=== PATIENT | male | born 1985 | race Caucasian/White ===

== ENCOUNTER 2017-10-10 18:40 | Emergency (ER) | payer OTHER ==
--- NOTE | 2017-10-10 19:45 | ED ---
Overdose HPI - General Chief Complaint: Overdose Stated Complaint: overdose Time Seen by Provider: 10/10/17 18:48 Source: EMS Mode of arrival: EMS Limitations: no limitations - History of Present Illness Initial Comments: 32-year-old male with past medical history of IV heroin abuse presented for evaluation of accidental IV heroin overdose. He states that he hasn't used for the last 8 months and isn't sure why he used today. He denies any suicidal or homicidal ideations. He states that he uses same amount that he used to use but believes that that may been too much for him at this time. EMS arrived and states that the patient was blue given 2 mg intranasal Narcan. This did not resolve his symptoms and he was given 2 mg IV with her return to his baseline. Patient states he was sitting on the toilet when he injected however EMS found him on the floor of the bathroom. He denies any pain or other injuries at this time. - Related Data Home Medications Medication Instructions Recorded Confirmed No Known Home Medications [No 10/10/17 10/10/17 Known Home Medications] Allergies Allergy/AdvReac Type Severity Reaction Status Date / Time No Known Allergies Allergy Unverified 10/10/17 18:51 Review of Systems ROS Statement: Those systems with pertinent positive or pertinent negative responses have been documented in the HPI. ROS Other: All systems not noted in ROS Statement are negative. Constitutional: Denies: fever, chills Eyes: Denies: eye pain, eye discharge ENT: Denies: ear pain, throat pain Respiratory: Denies: cough, dyspnea Cardiovascular: Denies: chest pain, palpitations, dyspnea on exertion Endocrine: Denies: fatigue, polydipsia Gastrointestinal: Denies: abdominal pain, nausea, vomiting Genitourinary: Denies: urgency, dysuria Musculoskeletal: Denies: back pain, arthralgia, myalgia Skin: Denies: rash, lesions Neurological: Denies: headache, weakness Psychiatric: Denies: anxiety, depression, homicidal thoughts, suicidal thoughts Hematological/Lymphatic: Denies: easy bleeding, easy bruising Past Medical History Past Medical History: No Reported History History of Any Multi-Drug Resistant Organisms: None Reported Past Surgical History: Hernia Repair Past Psychological History: No Psychological Hx Reported Smoking Status: Current every day smoker Past Alcohol Use History: Occasional Past Drug Use History: Heroin General Exam Limitations: no limitations General appearance: alert, in no apparent distress Head exam: Present: atraumatic, normocephalic, normal inspection Eye exam: Present: normal appearance, PERRL, EOMI. Absent: scleral icterus, conjunctival injection, periorbital swelling ENT exam: Present: normal exam, mucous membranes moist Neck exam: Present: normal inspection. Absent: tenderness, meningismus, lymphadenopathy Respiratory exam: Present: normal lung sounds bilaterally. Absent: respiratory distress, wheezes, rales, rhonchi, stridor Cardiovascular Exam: Present: regular rate, normal rhythm, normal heart sounds. Absent: systolic murmur, diastolic murmur, rubs, gallop, clicks GI/Abdominal exam: Present: soft, normal bowel sounds. Absent: distended, tenderness, guarding, rebound, rigid Rectal exam: Present: deferred Extremities exam: Present: normal inspection, full ROM, normal capillary refill. Absent: tenderness, pedal edema, joint swelling, calf tenderness Back exam: Present: normal inspection Neurological exam: Present: alert, oriented X3, CN II-XII intact Psychiatric exam: Present: normal affect, normal mood Skin exam: Present: warm, dry, intact, normal color. Absent: rash Course Vital Signs 10/10/17 10/10/17 18:41 19:51 Temperature 97.1 F L 96.9 F L Pulse Rate 93 87 Respiratory 16 17 Rate Blood Pressure 135/77 139/69 O2 Sat by Pulse 100 97 Oximetry Medical Decision Making - Medical Decision Making 32-year-old male with past medical history of heroin abuse presented for evaluation of IV heroine overdose. Overdose was accidental and the patient states he hasn't used for a month's which resulted in his unintentional OD. On physical examination he is at his baseline, in no apparent distress, resting comfortably in the bed. There are no injuries noted. Patient was observed in the ED for about an hour and a half which point the patient stated that he would like to be discharged. He called friend who came to pick him up and his friend for him that he would be watching her for the next couple hours. The patient was given instructions on rebound overdose and he acknowledged with teachback. Advised to follow-up with his primary care physician.given return instructions. The patient acknowledged an understanding of all phonation provided and agreed with this plan of care. Disposition Clinical Impression: Accidental heroin overdose Disposition: HOME SELF-CARE Condition: Stable Instructions: Narcotic Abuse (ED) Additional Instructions: at this time he is stable for discharge however there is concern for rebound overdose following Narcan administration. You are advised to have someone with 2 over the next 4-6 hours and should immediately to return to the ED if your symptoms should return or worsen. These instructions were given to at the bedside as well and verbal teachback was provided. Referrals: Shree Jones MD [Primary Care Provider] - 1-2 days Time of Disposition: 19:45
[2017-10-10 19:52] VITALS: BP 139/69; PULSE 87; RESP 17; TEMP 96.9
== END 2017-10-10 19:58 | disposition home or self-care (01) ==
LOC: EC 18:40
DX: T40.1X1A Poisoning by heroin, accidental (unintentional), initial encounter (principal); F17.200 Nicotine dependence, unspecified, uncomplicated
CPT/HCPCS: 99284

== ENCOUNTER 2017-12-11 04:28 | Observation (INO) | payer OTHER ==
[2017-12-11] MEDS ORDERED: diphenhydrAMINE 50 MG/ML 1 ML VIAL IVP STA (04:59)
[2017-12-11] MEDS ORDERED: SODIUM CHLORIDE 0.9% 1,000 ML IV STA ×2 (04:59→10:36)
[2017-12-11] MEDS ORDERED: LORazepam 2 MG/ML INJ IV STA (04:59)
--- NOTE | 2017-12-11 05:04 | ED ---
Overdose HPI - General Source: patient Limitations: no limitations - History of Present Illness Complaint: accidental overdose -: hour(s) Context: Accidental Overdose: wanted to get high <Juan Barragan - Last Filed: 12/11/17 05:43> <Blas Marinelli - Last Filed: 12/11/17 10:17> - General Stated Complaint: Overdose Time Seen by Provider: 12/11/17 04:38 - History of Present Illness Initial Comments: This patient is a 32-year-old man who presents to be evaluated for a reaction to taking meth. The patient states that he has been using both crack and meth for going on 3 days. He states that he has not slept all. He states that over the past few hours he has started developing involuntary movements and he is also having some hallucinations. The patient denies other coingestants. He states that he is now starting to have some aches related to the constant movements. (Juan Barragan) - Related Data Home Medications Medication Instructions Recorded Confirmed ALPRAZolam [Xanax] 0.5 mg PO BID PRN 12/11/17 12/11/17 Allergies Allergy/AdvReac Type Severity Reaction Status Date / Time No Known Allergies Allergy Verified 12/11/17 07:31 Review of Systems ROS Other: All systems not noted in ROS Statement are negative. Constitutional: Denies: fever, chills, weakness Eyes: Denies: vision change Respiratory: Denies: cough, dyspnea Cardiovascular: Denies: chest pain, palpitations, edema, syncope Gastrointestinal: Denies: abdominal pain, vomiting, diarrhea Genitourinary: Denies: hematuria Musculoskeletal: Reports: myalgia. Denies: back pain Skin: Denies: rash Neurological: Denies: headache, weakness, numbness <Juan Barragan - Last Filed: 12/11/17 05:43> ROS Other: All systems not noted in ROS Statement are negative. <Blas Marinelli - Last Filed: 12/11/17 10:17> ROS Statement: Those systems with pertinent positive or pertinent negative responses have been documented in the HPI. Past Medical History Past Medical History: No Reported History History of Any Multi-Drug Resistant Organisms: None Reported Past Surgical History: Hernia Repair Past Psychological History: No Psychological Hx Reported Smoking Status: Current every day smoker Past Alcohol Use History: Occasional Past Drug Use History: Heroin <Juan Barragan - Last Filed: 12/11/17 05:43> General Exam General appearance: alert, anxious Head exam: Present: atraumatic, normocephalic Eye exam: Present: normal appearance. Absent: scleral icterus, conjunctival injection ENT exam: Present: mucous membranes dry Neck exam: Present: normal inspection, full ROM Respiratory exam: Present: normal lung sounds bilaterally. Absent: respiratory distress, wheezes, rales, rhonchi, stridor Cardiovascular Exam: Present: normal rhythm, tachycardia, normal heart sounds. Absent: systolic murmur, diastolic murmur, rubs, gallop GI/Abdominal exam: Present: soft. Absent: distended, tenderness, guarding, rebound Extremities exam: Present: normal inspection, normal capillary refill. Absent: pedal edema, calf tenderness Back exam: Present: normal inspection. Absent: CVA tenderness (R), CVA tenderness (L) Neurological exam: Present: alert Skin exam: Present: warm, dry, intact, other (He does have a few excoriations the skin, 2 of which appear to have secondary infection) <KendelleliasJuan - Last Filed: 12/11/17 05:43> Course <YungJuan - Last Filed: 12/11/17 05:43> <Blas Marinelli - Last Filed: 12/11/17 10:17> Vital Signs 12/11/17 12/11/17 12/11/17 04:30 06:18 07:03 Temperature 97.0 F L Pulse Rate 140 H 106 H 97 Respiratory 18 16 18 Rate Blood Pressure 147/60 125/58 118/59 O2 Sat by Pulse 96 98 98 Oximetry 12/11/17 08:19 Temperature Pulse Rate 88 Respiratory 18 Rate Blood Pressure 117/57 O2 Sat by Pulse 99 Oximetry - Reevaluation(s) Reevaluation #1: 12/11/17 10:16 patient reevaluated by myself, Dr. Marinelli. Patient resting comfortably in bed. Patient is easily arousable and oriented. Patient advised to discontinue drug use. (Blas Marinelli) Medical Decision Making - EKG Data -: EKG Interpreted by Nm EKG shows normal: sinus rhythm, axis (Normal), intervals (Normal), QRS complexes (Normal), ST-T waves (Normal) Rate: tachycardia (Rate proximally 109 bpm) <Juan Barragan - Last Filed: 12/11/17 05:43> - Lab Data Result diagrams: 12/11/17 05:26 12/11/17 05:26 <Blas Marinelli - Last Filed: 12/11/17 10:17> - Lab Data Lab Results 12/11/17 12/11/17 12/11/17 Range/Units 05:26 05:26 05:26 WBC 18.0 H (3.8-10.6) k/uL RBC 4.27 L (4.30-5.90) m/uL Hgb 13.9 (13.0-17.5) gm/dL Hct 39.8 (39.0-53.0) % MCV 93.1 (80.0-100.0) fL MCH 32.4 (25.0-35.0) pg MCHC 34.8 (31.0-37.0) g/dL RDW 12.2 (11.5-15.5) % Plt Count 292 (150-450) k/uL Neutrophils % 82 % Lymphocytes % 9 % Monocytes % 6 % Eosinophils % 1 % Basophils % 0 % Neutrophils # 14.7 H (1.3-7.7) k/uL Lymphocytes # 1.6 (1.0-4.8) k/uL Monocytes # 1.2 H (0-1.0) k/uL Eosinophils # 0.1 (0-0.7) k/uL Basophils # 0.1 (0-0.2) k/uL Sodium 136 L (137-145) mmol/L Potassium 5.0 (3.5-5.1) mmol/L Chloride 100 (98-107) mmol/L Carbon Dioxide 25 (22-30) mmol/L Anion Gap 11 mmol/L BUN 30 H (9-20) mg/dL Creatinine 1.40 H (0.66-1.25) mg/dL Est GFR (MDRD) Af Amer >60 (>60 ml/min/1.73 sqM) Est GFR (MDRD) Non-Af 59 (>60 ml/min/1.73 sqM) Glucose 82 (74-99) mg/dL Plasma Lactic Acid Ki 0.9 (0.7-2.0) mmol/L Calcium 9.9 (8.4-10.2) mg/dL Magnesium 1.7 (1.6-2.3) mg/dL Total Bilirubin 0.5 (0.2-1.3) mg/dL AST 113 H (17-59) U/L ALT 77 H (21-72) U/L Alkaline Phosphatase 83 (38-126) U/L Total Protein 7.4 (6.3-8.2) g/dL Albumin 4.4 (3.5-5.0) g/dL Salicylates <1.0 mg/dL Acetaminophen <10.0 ug/mL Serum Alcohol <10 mg/dL Disposition <Juan Barragan - Last Filed: 12/11/17 05:43> Time of Disposition: 10:17 <Blas Marinelli - Last Filed: 12/11/17 10:17> Clinical Impression: Adverse drug reaction Disposition: HOME SELF-CARE Condition: Stable Instructions: Polysubstance Abuse (ED) Additional Instructions: discontinue drug use. Return for worsening symptoms or other concerns. Referrals: Shree Jones MD [Primary Care Provider] - 1-2 days
[2017-12-11 05:52] LABS: ALT 77 U/L (21-72); AST 113 U/L (17-59); Acetaminophen <10.0 ug/mL; Albumin 4.4 g/dL (3.5-5.0); Alcohol <10 mg/dL; Alkaline Phosphatase 83 U/L (38-126); Anion Gap 11 mmol/L; Basophils # (A) 0.1 k/uL (0-0.2); Basophils % (A) 0 %; Blood Urea Nitrogen 30 mg/dL (9-20); Calcium 9.9 mg/dL (8.4-10.2); Carbon Dioxide 25 mmol/L (22-30); Chloride 100 mmol/L (98-107); Eosinophils # (A) 0.1 k/uL (0-0.7); Eosinophils % (A) 1 %; Glucose 82 mg/dL (74-99); HCT 39.8 % (39.0-53.0); HGB 13.9 gm/dL (13.0-17.5); Lymphocytes # (A) 1.6 k/uL (1.0-4.8); Lymphocytes % (A) 9 %; MCH 32.4 pg (25.0-35.0); MCHC 34.8 g/dL (31.0-37.0); MCV 93.1 fL (80.0-100.0); Magnesium 1.7 mg/dL (1.6-2.3); Mean Platelet Volume 6.9; Monocytes # (A) 1.2 k/uL (0-1.0); Monocytes % (A) 6 %; Neutrophils # (A) 14.7 k/uL (1.3-7.7); Neutrophils % (A) 82 %; Platelet Count 292 k/uL (150-450); RBC 4.27 m/uL (4.30-5.90); RDW 12.2 % (11.5-15.5); Salicylate <1.0 mg/dL; Sodium 136 mmol/L (137-145); Total Bilirubin 0.5 mg/dL (0.2-1.3); Total Protein 7.4 g/dL (6.3-8.2)
--- NOTE | 2017-12-11 12:29 | ED ---
Medical Decision Making - Medical Decision Making patient is unable to demonstrate a steady gait. Nursing reports patient has made some the logical statements. Case was discussed with practitioner Aquiles, who will admit for Dr. Wang, covering for Dr. aly, who admits for Dr. Orozco. - Lab Data Result diagrams: 12/11/17 05:26 12/11/17 05:26 Lab Results 12/11/17 12/11/17 12/11/17 Range/Units 05:26 05:26 05:26 WBC 18.0 H (3.8-10.6) k/uL RBC 4.27 L (4.30-5.90) m/uL Hgb 13.9 (13.0-17.5) gm/dL Hct 39.8 (39.0-53.0) % MCV 93.1 (80.0-100.0) fL MCH 32.4 (25.0-35.0) pg MCHC 34.8 (31.0-37.0) g/dL RDW 12.2 (11.5-15.5) % Plt Count 292 (150-450) k/uL Neutrophils % 82 % Lymphocytes % 9 % Monocytes % 6 % Eosinophils % 1 % Basophils % 0 % Neutrophils # 14.7 H (1.3-7.7) k/uL Lymphocytes # 1.6 (1.0-4.8) k/uL Monocytes # 1.2 H (0-1.0) k/uL Eosinophils # 0.1 (0-0.7) k/uL Basophils # 0.1 (0-0.2) k/uL Sodium 136 L (137-145) mmol/L Potassium 5.0 (3.5-5.1) mmol/L Chloride 100 (98-107) mmol/L Carbon Dioxide 25 (22-30) mmol/L Anion Gap 11 mmol/L BUN 30 H (9-20) mg/dL Creatinine 1.40 H (0.66-1.25) mg/dL Est GFR (MDRD) Af Amer >60 (>60 ml/min/1.73 sqM) Est GFR (MDRD) Non-Af 59 (>60 ml/min/1.73 sqM) Glucose 82 (74-99) mg/dL Plasma Lactic Acid Ki 0.9 (0.7-2.0) mmol/L Calcium 9.9 (8.4-10.2) mg/dL Magnesium 1.7 (1.6-2.3) mg/dL Total Bilirubin 0.5 (0.2-1.3) mg/dL AST 113 H (17-59) U/L ALT 77 H (21-72) U/L Alkaline Phosphatase 83 (38-126) U/L Total Protein 7.4 (6.3-8.2) g/dL Albumin 4.4 (3.5-5.0) g/dL Salicylates <1.0 mg/dL Acetaminophen <10.0 ug/mL Serum Alcohol <10 mg/dL Disposition Clinical Impression: Adverse drug reaction, Altered mental status Disposition: ADMITTED IP TO THIS HOSP Condition: Stable Instructions: Polysubstance Abuse (ED) Additional Instructions: discontinue drug use. Return for worsening symptoms or other concerns. Referrals: Shree Jones MD [Primary Care Provider] - 1-2 days
[2017-12-11] MEDS ORDERED: NALOXONE 0.4 MG/ML 1 ML VIAL IV PRN (12:30)
[2017-12-11] MEDS ORDERED: SODIUM CHLORIDE 0.9% 1,000 ML IV SCH (12:30)
--- NOTE | 2017-12-11 13:30 | CT ---
EXAMINATION TYPE: CT brain wo con DATE OF EXAM: 12/11/2017 COMPARISON: NONE INDICATION: overdose, altered mental status DLP: 1121 mGycm, Automated exposure control for dose reduction was used. CONTRAST: None CT of the brain is performed utilizing 3 mm thick sections through the posterior fossa and 3 mm thick sections through the remaining calvarium. Study is performed within 24 hours of arrival to the hosp ital. Motion artifact limits the examination. No abnormal hyperdensity is present to suggest an acute intracranial hemorrhage. No mass lesion is evident. No acute infarcts are evident. Ventricles and sulci are appropriate for the patient age. Paranasal sinuses and mastoid air cells within the [id number] are clear. IMPRESSIONS: 1. No obvious acute intracranial abnormality. 2. Exam is limited due to motion artifact especially noted at the edges of the calvarium.
[2017-12-11 15:46] LABS: Appearance,Urine Clear (Clear); Bilirubin,Urine Negative (Negative); Blood,Urine Negative (Negative); Color,Urine Yellow; Glucose,Urine (UA) Negative (Negative); Ketones,Urine 2+ (Negative); Leukocyte Esterase,Urine Negative (Negative); Nitrite,Urine Negative (Negative); PH, Urine 5.5 (5.0-8.0); Protein,Urine Trace (Negative); Specific Gravity,Urine 1.015 (1.001-1.035); Urobilinogen,Urine <2.0 mg/dL (<2.0)
[2017-12-11 15:54] LABS: Amphetamine Screen,Urine Detected (NotDetected); Barbiturate Screen,Urine Not Detected (NotDetected); Benzodiazepines Screen,Urine Detected (NotDetected); Cocaine Screen,Urine Not Detected (NotDetected); Methadone Screen, Urine Not Detected (NotDetected); Opiate Screen,Urine Detected (NotDetected); Oxycodone Screen, Urine Not Detected (NotDetected); Phencyclidine Screen,Urine Not Detected (NotDetected); Tricyclic Antidepressant,Urine Not Detected (NotDetected); Urn Cannabinoid Scrn Not Detected (NotDetected)
[2017-12-11] MEDS ORDERED: ONDANSETRON 4 MG/2 ML VIAL IVP PRN (17:40)
[2017-12-11] MEDS ORDERED: PANTOPRAZOLE 40 MG/10 ML VIAL IVP SCH (17:45)
[2017-12-11 19:35] VITALS: BP 120/58; PULSE 90; RESP 18; TEMP 97
[2017-12-11] MEDS ORDERED: LORazepam 1 MG TAB PO PRN (20:41)
[2017-12-11] MEDS ORDERED: TEMAZEPAM 15 MG CAP PO PRN (20:41)
[2017-12-11] MEDS ORDERED: HEPARIN SODIUM,PORCINE 5,000 UNIT/ML 1 ML VIAL SQ SCH (21:00)
[2017-12-11] MEDS ORDERED: cloNIDine HCL 0.1 MG TAB PO SCH (22:00)
--- NOTE | 2017-12-11 23:32 | HP ---
HISTORY AND PHYSICAL DATE OF SERVICE: 12/11/2017 CHIEF COMPLAINTS: Overdose and change in mental status. HISTORY OF PRESENT ILLNESS: This 32-year-old gentleman has a past medical history of multiple medical problems, including hernia repair, history of nicotine dependence, extensive history of substance abuse. Patient has a history of IV heroin abuse and methamphetamine abuse. Patient apparently went on a 3-day binge of methamphetamine and heroin abuse, according to the history. The patient was taken to [facility] by his girlfriend. The patient was using crack and methamphetamine for 3 days and patient had not slept well and the patient was having involuntary movements, hallucinations, confusion. The patient was taken to [facility] and admitted for evaluation and treatment. A sitter is being provided at this time. The patient is confused and unable to give a coherent history. Most of the history is taken from my discussion with staff and review of the chart. The patient also has multiple skin wounds, possibly from the drug abuse. The most predominant is in the left inguinal area. PAST MEDICAL HISTORY: 1. Hernia repair. 2. Substance abuse history. MEDICATIONS: Xanax 0.5 b.i.d. p.r.n. ALLERGIES: NONE. FAMILY HISTORY: No history of heart disease or strokes in the family. SOCIAL HISTORY: History of heroin and substance abuse, smoking. REVIEW OF SYSTEMS: Could not be taken; the patient is confused. PHYSICAL EXAMINATION: Patient is alert oriented x1. Pulse 83, blood pressure 128/66, respiration 16, temperature 98 degrees, pulse ox 98% on room air. HEENT: Conjunctivae normal. Oral mucosa moist. NECK: No jugular venous distention. No carotid bruit. No lymph node enlargement. CARDIOVASCULAR SYSTEM: S1, S2 muffled. No S3. No S4. RESPIRATORY SYSTEM: Breath sounds diminished at the bases. A few rhonchi. No crackles. ABDOMEN: Soft, nontender. No mass palpable. LEGS: No edema. No swelling. NERVOUS SYSTEM: Higher functions as mentioned earlier. Moves all 4 limbs. Mild diffuse weakness. LYMPHATICS: No lymph node palpable in neck, axillae or groin. SKIN: The patient has multiple needle track infections as well as significant rash in the left groin area also present. JOINTS: No active deforming arthropathy. LABS: WBC 18, hemoglobin 13.9, sodium 136, creatinine 1.4. AST ALT elevated. Drug screen is positive for amphetamines, methamphetamines, benzodiazepines and opiates. Alcohol less than 10. ASSESSMENT: 1. Status post overdosage with multiple substances, including methamphetamines and heroin. 2. Change in mental status, acute metabolic encephalopathy secondary to drug overdosage. 3. Increased white count, possibly secondary to cellulitis. 4. Multiple cellulitis needle tract infections. 5. Hyponatremia. 6. Increased creatinine with chronic kidney disease, stage III possibly. 7. Increased AST, ALT, possibly hepatitis, possibly secondary to drug usage or hepatitis. 8. History of hernia repair. 9. History of nicotine dependence. 10.FULL CODE. RECOMMENDATIONS AND DISCUSSION: In this 32-year-old gentleman who presented with multiple complex medical issues, we will monitor the patient closely, continue the current medications, continue symptomatic treatment. Otherwise at this time I recommend clonidine, watch for withdrawals and monitor closely. Psychiatric consultation. Infectious disease evaluation. Broad-spectrum IV antibiotics. Cultures. Guarded prognosis because of multiple complex medical issues. Further recommendations to follow. A copy of this dictation is being forwarded to Dr. Jones, who is the primary physician. MMODL / IJN: [id number] /
[2017-12-12] MEDS ORDERED: ceFAZolin IN SWFI 2 GM/20 ML SYRINGE IVP SCH
--- NOTE | 2017-12-13 09:10 | DS ---
DISCHARGE SUMMARY FINAL DIAGNOSES: 1. Status post overdose with multiple substances including methamphetamines and heroin. 2. Change in mental status, acute metabolic encephalopathy secondary to drug overdose. 3. Increased WBC possibly secondary to cellulitis. 4. Multiple cellulitis and needle tract infections. 5. Hyponatremia. DISCHARGE DISPOSITION: The patient left AGAINST MEDICAL ADVICE. HISTORY OF PRESENT ILLNESS: This 32-year-old gentleman with past medical history of multiple medical issues as mentioned earlier. Before being evaluated thoroughly the patient left the hospital AGAINST MEDICAL ADVICE. Please refer to the previous notes for further information. MMODL / IJN: [id number] /
== END 2017-12-11 21:00 | disposition left against medical advice (07) ==
LOC: EC 04:28 → 3OBS 12:30
PROVIDERS: ADMIT Internal Medicine; ATTEND Internal Medicine
DX: T40.5X1A Poisoning by cocaine, accidental (unintentional), initial encounter (principal); T40.1X1A Poisoning by heroin, accidental (unintentional), initial encounter; T43.621A Poisoning by amphetamines, accidental (unintentional), initial encounter; R41.82 Altered mental status, unspecified; G92 Toxic encephalopathy; E87.1 Hypo-osmolality and hyponatremia; L03.90 Cellulitis, unspecified; R79.89 Other specified abnormal findings of blood chemistry; D72.829 Elevated white blood cell count, unspecified; Z53.21 Procedure and treatment not carried out due to patient leaving prior to being seen by health care provider; F17.200 Nicotine dependence, unspecified, uncomplicated; F15.10 Other stimulant abuse, uncomplicated; F11.10 Opioid abuse, uncomplicated
CPT/HCPCS: 99285; 96374 ×2; 96375 ×2; 96361 ×4; 36415; 93005; 80053; 83605; 83735; 85025; 81003; 80306; 83520 ×2; 80320; 70450; G0378; J2060; J1200

== ENCOUNTER 2017-12-31 21:32 | Inpatient (IN) | payer OTHER ==
[2017-12-31] MEDS ORDERED: IBUPROFEN 600 MG TAB PO STA (22:20)
[2017-12-31] MEDS ORDERED: ACETAMINOPHEN TAB 500 MG TAB PO STA (22:20)
--- NOTE | 2017-12-31 22:23 | ED ---
General Adult HPI - General Chief complaint: Upper Respiratory Infection Stated complaint: KIMBERLEY Time Seen by Provider: 12/31/17 21:45 Source: patient, RN notes reviewed Mode of arrival: EMS Limitations: no limitations - History of Present Illness Initial comments: Patient is a pleasant 32-year-old male presenting to the emergency department with fever and dyspnea. Symptoms have been present for 4 days now. Patient does have cough with productive green sputum. Patient has had fevers. Last Motrin was yesterday. Patient has fatigue. No appetite and the past few days. No vomiting. Patient has headache and generalized malaise. Patient states his chronic back pain hurts somewhat more than normal. - Related Data Home Medications Medication Instructions Recorded Confirmed ALPRAZolam [Xanax] 0.5 mg PO BID PRN 12/11/17 12/31/17 Allergies Allergy/AdvReac Type Severity Reaction Status Date / Time No Known Allergies Allergy Verified 12/31/17 22:14 Review of Systems ROS Statement: Those systems with pertinent positive or pertinent negative responses have been documented in the HPI. ROS Other: All systems not noted in ROS Statement are negative. Constitutional: Reports: fever, chills, weakness Eyes: Denies: eye pain ENT: Denies: ear pain Respiratory: Reports: cough, dyspnea Cardiovascular: Denies: chest pain Endocrine: Reports: fatigue Gastrointestinal: Denies: abdominal pain Genitourinary: Denies: dysuria Musculoskeletal: Reports: back pain Skin: Denies: rash Neurological: Denies: weakness Past Medical History Past Medical History: Pneumonia Additional Past Medical History / Comment(s): chronic back pain, pneumothorax History of Any Multi-Drug Resistant Organisms: None Reported Past Surgical History: Hernia Repair Past Psychological History: No Psychological Hx Reported Smoking Status: Current every day smoker Past Alcohol Use History: None Reported Past Drug Use History: None Reported General Exam Limitations: no limitations General appearance: alert, in no apparent distress Head exam: Present: atraumatic Eye exam: Present: normal appearance, PERRL ENT exam: Present: normal oropharynx Neck exam: Present: normal inspection Respiratory exam: Present: rhonchi Cardiovascular Exam: Present: tachycardia Expanded Peripheral pulses: 2+: Posterior Tibialis (R), Posterior Tibialis (L) GI/Abdominal exam: Present: soft. Absent: distended, tenderness Extremities exam: Present: normal inspection Back exam: Present: normal inspection Neurological exam: Present: alert. Absent: motor sensory deficit Expanded Motor strength exam: RLE: 5, LLE: 5 Psychiatric exam: Present: normal affect, normal mood Skin exam: Present: normal color. Absent: rash Course Vital Signs 12/31/17 12/31/17 12/31/17 21:39 22:16 22:42 Temperature 102.8 F H Pulse Rate 111 H 97 Respiratory 24 20 18 Rate Blood Pressure 115/55 O2 Sat by Pulse 99 97 Oximetry 12/31/17 23:00 Temperature Pulse Rate 98 Respiratory 20 Rate Blood Pressure O2 Sat by Pulse 100 Oximetry - Reevaluation(s) Reevaluation #1: 01/01/18 00:29 There is suspicion of sepsis although no source at this time. Diagnosed at 0029. EKG Findings - EKG Comments: EKG Findings:: Sinus tachycardia 102. VT 134. QRS 82. QT 304. QTC 396. Normal axis. Normal QRS. No acute ST change. Medical Decision Making - Medical Decision Making Exact etiology of illness is unclear at this time. Patient reevaluated and feels somewhat better. Patient still complains of increased pain of his chronic lower back pain. Patient will need further evaluation of this and computed tomography scan will be ordered at this time. Echo will also be ordered of the heart for possible myocarditis. Hepatitis panel will be ordered. Patient does admit to having a history of IV drug use and does request further pain medication. A dose of pain medication will be provided at this time. Cause of thrombocytopenia and hyponatremia are unclear at this time. Case was discussed in detail with practitioner Tana, who will admit for Dr. aly, covering for Dr. Orozco. - Lab Data Result diagrams: 12/31/17 22:05 12/31/17 22:05 Lab Results 12/31/17 12/31/17 12/31/17 Range/Units 22:00 22:05 22:05 WBC 7.6 (3.8-10.6) k/uL RBC 3.88 L (4.30-5.90) m/uL Hgb 12.0 L (13.0-17.5) gm/dL Hct 35.7 L (39.0-53.0) % MCV 91.8 (80.0-100.0) fL MCH 31.0 (25.0-35.0) pg MCHC 33.8 (31.0-37.0) g/dL RDW 12.5 (11.5-15.5) % Plt Count 80 L D (150-450) k/uL Neutrophils % 85 % Lymphocytes % 7 % Monocytes % 5 % Eosinophils % 1 % Basophils % 0 % Neutrophils # 6.4 (1.3-7.7) k/uL Lymphocytes # 0.6 L (1.0-4.8) k/uL Monocytes # 0.4 (0-1.0) k/uL Eosinophils # 0.1 (0-0.7) k/uL Basophils # 0.0 (0-0.2) k/uL PT (9.0-12.0) sec INR (<1.2) APTT (22.0-30.0) sec Sodium (137-145) mmol/L Potassium (3.5-5.1) mmol/L Chloride (98-107) mmol/L Carbon Dioxide (22-30) mmol/L Anion Gap mmol/L BUN (9-20) mg/dL Creatinine (0.66-1.25) mg/dL Est GFR (MDRD) Af Amer (>60 ml/min/1.73 sqM) Est GFR (MDRD) Non-Af (>60 ml/min/1.73 sqM) Glucose (74-99) mg/dL Plasma Lactic Acid Ki (0.7-2.0) mmol/L Calcium (8.4-10.2) mg/dL Total Bilirubin (0.2-1.3) mg/dL AST (17-59) U/L ALT (21-72) U/L Alkaline Phosphatase (38-126) U/L Total Creatine Kinase 99 (55-170) U/L CK-MB (CK-2) <0.2 (0.0-2.4) ng/mL CK-MB (CK-2) Rel Index Troponin I 0.102 H* (0.000-0.034) ng/mL Total Protein (6.3-8.2) g/dL Albumin (3.5-5.0) g/dL Urine Color Yellow Urine Appearance Clear (Clear) Urine pH 6.0 (5.0-8.0) Ur Specific Agate 1.016 (1.001-1.035) Urine Protein 2+ H (Negative) Urine Glucose (UA) Negative (Negative) Urine Ketones Negative (Negative) Urine Blood Small H (Negative) Urine Nitrite Negative (Negative) Urine Bilirubin Negative (Negative) Urine Urobilinogen 3.0 (<2.0) mg/dL Ur Leukocyte Esterase Negative (Negative) Urine RBC 1 (0-5) /hpf Urine WBC 6 H (0-5) /hpf Ur Squamous Epith Cells <1 (0-4) /hpf Influenza Type A RNA (Not Detectd) Influenza Type B (PCR) (Not Detectd) 12/31/17 12/31/17 12/31/17 Range/Units 22:05 22:05 22:05 WBC (3.8-10.6) k/uL RBC (4.30-5.90) m/uL Hgb (13.0-17.5) gm/dL Hct (39.0-53.0) % MCV (80.0-100.0) fL MCH (25.0-35.0) pg MCHC (31.0-37.0) g/dL RDW (11.5-15.5) % Plt Count (150-450) k/uL Neutrophils % % Lymphocytes % % Monocytes % % Eosinophils % % Basophils % % Neutrophils # (1.3-7.7) k/uL Lymphocytes # (1.0-4.8) k/uL Monocytes # (0-1.0) k/uL Eosinophils # (0-0.7) k/uL Basophils # (0-0.2) k/uL PT (9.0-12.0) sec INR (<1.2) APTT (22.0-30.0) sec Sodium 119 L* (137-145) mmol/L Potassium 4.4 (3.5-5.1) mmol/L Chloride 87 L (98-107) mmol/L Carbon Dioxide 23 (22-30) mmol/L Anion Gap 9 mmol/L BUN 15 (9-20) mg/dL Creatinine 1.00 (0.66-1.25) mg/dL Est GFR (MDRD) Af Amer >60 (>60 ml/min/1.73 sqM) Est GFR (MDRD) Non-Af >60 (>60 ml/min/1.73 sqM) Glucose 111 H (74-99) mg/dL Plasma Lactic Acid Ki 1.1 (0.7-2.0) mmol/L Calcium 8.1 L (8.4-10.2) mg/dL Total Bilirubin 0.7 (0.2-1.3) mg/dL AST 131 H (17-59) U/L ALT 115 H (21-72) U/L Alkaline Phosphatase 164 H (38-126) U/L Total Creatine Kinase (55-170) U/L CK-MB (CK-2) (0.0-2.4) ng/mL CK-MB (CK-2) Rel Index Troponin I (0.000-0.034) ng/mL Total Protein 6.3 (6.3-8.2) g/dL Albumin 3.2 L (3.5-5.0) g/dL Urine Color Urine Appearance (Clear) Urine pH (5.0-8.0) Ur Specific Agate (1.001-1.035) Urine Protein (Negative) Urine Glucose (UA) (Negative) Urine Ketones (Negative) Urine Blood (Negative) Urine Nitrite (Negative) Urine Bilirubin (Negative) Urine Urobilinogen (<2.0) mg/dL Ur Leukocyte Esterase (Negative) Urine RBC (0-5) /hpf Urine WBC (0-5) /hpf Ur Squamous Epith Cells (0-4) /hpf Influenza Type A RNA Not Detected (Not Detectd) Influenza Type B (PCR) Not Detected (Not Detectd) 12/31/17 Range/Units 22:05 WBC (3.8-10.6) k/uL RBC (4.30-5.90) m/uL Hgb (13.0-17.5) gm/dL Hct (39.0-53.0) % MCV (80.0-100.0) fL MCH (25.0-35.0) pg MCHC (31.0-37.0) g/dL RDW (11.5-15.5) % Plt Count (150-450) k/uL Neutrophils % % Lymphocytes % % Monocytes % % Eosinophils % % Basophils % % Neutrophils # (1.3-7.7) k/uL Lymphocytes # (1.0-4.8) k/uL Monocytes # (0-1.0) k/uL Eosinophils # (0-0.7) k/uL Basophils # (0-0.2) k/uL PT 12.9 H (9.0-12.0) sec INR 1.4 H (<1.2) APTT 27.7 (22.0-30.0) sec Sodium (137-145) mmol/L Potassium (3.5-5.1) mmol/L Chloride (98-107) mmol/L Carbon Dioxide (22-30) mmol/L Anion Gap mmol/L BUN (9-20) mg/dL Creatinine (0.66-1.25) mg/dL Est GFR (MDRD) Af Amer (>60 ml/min/1.73 sqM) Est GFR (MDRD) Non-Af (>60 ml/min/1.73 sqM) Glucose (74-99) mg/dL Plasma Lactic Acid Ki (0.7-2.0) mmol/L Calcium (8.4-10.2) mg/dL Total Bilirubin (0.2-1.3) mg/dL AST (17-59) U/L ALT (21-72) U/L Alkaline Phosphatase (38-126) U/L Total Creatine Kinase (55-170) U/L CK-MB (CK-2) (0.0-2.4) ng/mL CK-MB (CK-2) Rel Index Troponin I (0.000-0.034) ng/mL Total Protein (6.3-8.2) g/dL Albumin (3.5-5.0) g/dL Urine Color Urine Appearance (Clear) Urine pH (5.0-8.0) Ur Specific Agate (1.001-1.035) Urine Protein (Negative) Urine Glucose (UA) (Negative) Urine Ketones (Negative) Urine Blood (Negative) Urine Nitrite (Negative) Urine Bilirubin (Negative) Urine Urobilinogen (<2.0) mg/dL Ur Leukocyte Esterase (Negative) Urine RBC (0-5) /hpf Urine WBC (0-5) /hpf Ur Squamous Epith Cells (0-4) /hpf Influenza Type A RNA (Not Detectd) Influenza Type B (PCR) (Not Detectd) - Radiology Data Radiology results: image reviewed (Chest x-ray shows no acute process) Critical Care Time Critical Care Time: Yes Total Critical Care Time: 33 Disposition Clinical Impression: Febrile illness, Sepsis, Thrombocytopenia, Hyponatremia Disposition: ADMITTED IP TO THIS [facility] Condition: Serious Referrals: Shree Jones MD [Primary Care Provider] - 1-2 days Decision Time: 00:30
[2017-12-31] MEDS: SODIUM CHLORIDE 0.9% 500 ML IV SCH ×2 (22:38→23:46)
[2017-12-31 22:56] LABS: ALT 115 U/L (21-72); AST 131 U/L (17-59); Albumin 3.2 g/dL (3.5-5.0); Alkaline Phosphatase 164 U/L (38-126); Anion Gap 9 mmol/L; Blood Urea Nitrogen 15 mg/dL (9-20); Calcium 8.1 mg/dL (8.4-10.2); Carbon Dioxide 23 mmol/L (22-30); Chloride 87 mmol/L (98-107); Glucose 111 mg/dL (74-99); Potassium 4.4 mmol/L (3.5-5.1); Total Bilirubin 0.7 mg/dL (0.2-1.3); Total Protein 6.3 g/dL (6.3-8.2)
[2017-12-31 22:58] LABS: Sodium 119 mmol/L (137-145)
[2017-12-31 23:07] LABS: Creatine Kinase 99 U/L (55-170)
[2017-12-31 23:09] LABS: INR 1.4 (<1.2); Partial Thromboplastin Time 27.7 sec (22.0-30.0); Prothrombin Time 12.9 sec (9.0-12.0)
[2017-12-31 23:14] LABS: Basophils % (A) 0 %; Eosinophils # (A) 0.1 k/uL (0-0.7); Eosinophils % (A) 1 %; HCT 35.7 % (39.0-53.0); Lymphocytes # (A) 0.6 k/uL (1.0-4.8); Lymphocytes % (A) 7 %; MCHC 33.8 g/dL (31.0-37.0); MCV 91.8 fL (80.0-100.0); Mean Platelet Volume 7.7; Monocytes # (A) 0.4 k/uL (0-1.0); Monocytes % (A) 5 %; Neutrophils # (A) 6.4 k/uL (1.3-7.7); Neutrophils % (A) 85 %; RBC 3.88 m/uL (4.30-5.90); RDW 12.5 % (11.5-15.5); WBC 7.6 k/uL (3.8-10.6)
--- NOTE | 2017-12-31 23:17 | XR ---
EXAMINATION TYPE: XR chest 2V DATE OF EXAM: 12/31/2017 COMPARISON: NONE HISTORY: Chest pain TECHNIQUE: Frontal and lateral views of the chest are obtained. FINDINGS: Heart and mediastinum are normal. Lungs are clear of consolidation. There is no pleural ef fusion. There are chest leads. Bony thorax is intact. IMPRESSION: No active cardiopulmonary disease.
[2017-12-31 23:20] LABS: Creatine Kinase MB <0.2 ng/mL (0.0-2.4)
[2017-12-31 23:21] LABS: Troponin I 0.102 ng/mL (0.000-0.034)
[2017-12-31 23:33] LABS: Appearance,Urine Clear (Clear); Bilirubin,Urine Negative (Negative); Blood,Urine Small (Negative); Color,Urine Yellow; Glucose,Urine (UA) Negative (Negative); Ketones,Urine Negative (Negative); Leukocyte Esterase,Urine Negative (Negative); Nitrite,Urine Negative (Negative); Protein,Urine 2+ (Negative); RBC,Urine 1 /hpf (0-5); Specific Gravity,Urine 1.016 (1.001-1.035); Squamous Epithelial Cell,Urine <1 /hpf (0-4); WBC,Urine 6 /hpf (0-5)
[2017-12-31 23:49] LABS: Platelet Count 80 k/uL (150-450)
[2018-01-01] MEDS ORDERED: RX INFO: IV CONTRAST WAS GIVEN 1 EACH MISC MISCELLANE PRN (00:31)
[2018-01-01] MEDS ORDERED: cefTRIAXone IN SWFI 2,000 MG/20 ML SYRINGE IVP STA (00:32)
[2018-01-01] MEDS ORDERED: NALOXONE 0.4 MG/ML 1 ML VIAL IV PRN (00:33)
[2018-01-01] MEDS ORDERED: IBUPROFEN 400 MG TAB PO PRN (00:33)
[2018-01-01] MEDS ORDERED: ACETAMINOPHEN TAB 325 MG TAB PO PRN (00:33)
[2018-01-01] MEDS ORDERED: VANCOMYCIN IV PER PHARMACY 1 EACH MISC MISCELLANE PRN (00:33)
[2018-01-01] MEDS ORDERED: MORPHINE SULFATE 4 MG/ML SYRINGE IV STA (00:35)
[2018-01-01] MEDS: SODIUM CHLORIDE 0.9% 500 ML IV SCH ×2 (00:46→01:47)
[2018-01-01] MEDS ORDERED: VANCOMYCIN 1,250 MG in SODIUM CHLORIDE 0.9% 250 ML IVPB SCH (01:15)
[2018-01-01 01:21] LABS: Amphetamine Screen,Urine Detected (NotDetected); Barbiturate Screen,Urine Not Detected (NotDetected); Benzodiazepines Screen,Urine Not Detected (NotDetected); Cocaine Screen,Urine Not Detected (NotDetected); Methadone Screen, Urine Not Detected (NotDetected); Opiate Screen,Urine Detected (NotDetected); Oxycodone Screen, Urine Not Detected (NotDetected); Phencyclidine Screen,Urine Not Detected (NotDetected); Tricyclic Antidepressant,Urine Not Detected (NotDetected); Urn Cannabinoid Scrn Not Detected (NotDetected)
--- NOTE | 2018-01-01 01:27 | CT ---
EXAMINATION TYPE: CT lumbar spine w con DATE OF EXAM: 01/01/2018 COMPARISON: NONE HISTORY: No prior, fever, chronic low back pain CT DLP: 497.00 mGycm Automated exposure control for dose reduction was used. CONTRAST: CT scan of the lumbar is performed with IV Contrast, patient injected with 100 mL of Omnipaque 300. The lumbar vertebra have fairly normal spacing and alignment. There is some mild anterior spurring in the lower thoracic spine. There is bilateral L4 spondylolysis. There is no spondylolisthesis. There is no lumbar paraspinal mass. I see no pathologic enhancement. The sacroiliac joints appear intact. T here is also spondylolysis of the left side S1 vertebra. I see no bony destructive process. IMPRESSION: Spondylolysis as above. No acute bony abnormality seen. No focal bone destruction seen to suggest ost eomyelitis. There is mild subsegmental atelectasis at the lung bases.
[2018-01-01 02:05] VITALS: BMI 22.7
[2018-01-01] MEDS: SODIUM CHLORIDE 0.9% 1,000 ML IV SCH ×2 (02:29→10:30)
[2018-01-01 06:17] LABS: Glucose,Whole Blood 101 mg/dL (75-99)
[2018-01-01 07:28] LABS: Creatine Kinase MB 0.5 ng/mL (0.0-2.4)
[2018-01-01 08:01] LABS: Troponin I 0.047 ng/mL (0.000-0.034)
[2018-01-01] MEDS ORDERED: NITROGLYCERIN OINT 1 INCH/GM PACKET TOPICAL STA (08:38)
--- NOTE | 2018-01-01 08:40 | P.CONS ---
History of Present Illness - Reason for Consult Consult date: 01/01/18 Fever, suspected sepsis - History of Present Illness This is a 32-year-old male patient gives history of IV drug use for the past 10 years and last use 4-5 days ago. He states he has had an abscess in his right arm and treated at [facility] almost lost his arm at that time. He has also overdosed 8 years ago and was in a coma for 6-1/2 days was treated for pneumonia. Patient denies history of endocarditis. Patient states he had onset of fever, dyspnea, cough with green sputum production, decreased appetite and generalized malaise for the past 4 days. He does have chronic back pain which is more severe since this illness started. He presented to [facility] emergency center with temperature 102.8, white count is 7.6, platelet count of 80, sodium 119 and chloride 87. Creatinine was 1. Liver function tests were elevated and troponin was elevated at 0.102. Albumin was 3.2. Urinalysis was clear with blood small and protein 2+. Urine drug screen was positive for opiates, amphetamines and methamphetamines. Influenza testing was negative. He underwent a chest x-ray that showed no acute cardio pulmonary disease. Lumbar spine CAT scan showed spondylolisthesis. No acute bony abnormality. No focal bone destruction to suggest osteomyelitis. There was mild subsegmental atelectasis at the lung bases. Review of Systems All systems: negative Constitutional: Reports anorexia, Reports chills, Reports fatigue, Reports fever , Reports lethargy, Reports malaise, Reports poor appetite, Reports weakness Eyes: denies blurred vision, denies pain Ears, nose, mouth and throat: Denies dental pain, Denies headache, Denies mouth pain, Denies sore throat, Denies vertigo Cardiovascular: Reports shortness of breath, Denies chest pain, Denies edema, Denies leg edema, Denies lightheadedness, Denies syncope Respiratory: Reports cough, Reports cough with sputum Gastrointestinal: Reports loss of appetite, Denies abdominal pain, Denies diarrhea, Denies nausea, Denies vomiting Genitourinary: Denies dysuria Musculoskeletal: Reports low back pain, Denies myalgias Integumentary: Denies pruritus, Denies rash Neurological: Denies numbness, Denies weakness Psychiatric: Denies anxiety, Denies depression Endocrine: Denies fatigue, Denies weight change Past Medical History Past Medical History: Pneumonia Additional Past Medical History / Comment(s): chronic back pain, pneumothorax History of Any Multi-Drug Resistant Organisms: None Reported Past Surgical History: Hernia Repair Past Anesthesia/Blood Transfusion Reactions: No Reported Reaction Past Psychological History: No Psychological Hx Reported Smoking Status: Current every day smoker Past Alcohol Use History: None Reported Additional Past Alcohol Use History / Comment(s): Patient is a smoker one pack per day for 20 years. Patient is actively using IV drugs. Past Drug Use History: Heroin, IV Drug Use, Methamphetamine - Past Family History Mother History Unknown: Yes Medications and Allergies Home Medications Medication Instructions Recorded Confirmed Type ALPRAZolam [Xanax] 0.5 mg PO BID PRN 12/11/17 12/31/17 History Allergies Allergy/AdvReac Type Severity Reaction Status Date / Time No Known Allergies Allergy Verified 12/31/17 22:14 Physical Exam Vitals: Vital Signs Temp Pulse Resp BP Pulse Ox 01/01/18 06:40 96.6 F L 69 18 96/51 100 01/01/18 06:16 96.7 F L 01/01/18 05:37 96.6 F L 01/01/18 05:17 68 18 100/56 100 01/01/18 04:18 65 18 102/63 100 01/01/18 03:27 59 L 16 96/51 100 01/01/18 01:50 68 18 97/55 98 01/01/18 00:36 105/57 01/01/18 00:31 99.3 F 69 16 99 12/31/17 23:00 98 20 100 12/31/17 22:42 97 18 97 12/31/17 22:16 20 12/31/17 21:39 102.8 F H 111 H 24 115/55 99 Intake and Output 12/31/17 01/01/18 01/01/18 22:59 06:59 14:59 Other: Weight 65.771 kg 65.771 kg Gen: This is a thin 32-year-old male. He is seen in the emergency center and is wincing writhing in pain with minimal movement and with any palpation on his chest. HEENT: Head is atraumatic, normocephalic. Pupils equal, round. Sclerae is anicteric. Conjunctiva pink. NECK: Supple. No JVD. No lymphadenopathy. No thyromegaly. LUNGS: Clear to auscultation. No wheezes or rhonchi. No intercostal retractions. HEART: Regular rate and rhythm. No murmur. Tenderness with placing stethoscope to the chest wall. ABDOMEN: Soft. Bowel sounds are present. No masses. No tenderness. EXTREMITIES: No pedal edema. No calf tenderness. 1+ dorsalis pedis palpable bilaterally NEUROLOGICAL: Patient is awake, alert and oriented x3. Cranial nerves 2 through 12 are grossly intact. Results CBC & Chem 7: 12/31/17 22:05 12/31/17 22:05 Labs: Abnormal Lab Results - Last 24 Hours (Table) 12/31/17 12/31/17 12/31/17 Range/Units 22:00 22:05 22:05 RBC 3.88 L (4.30-5.90) m/uL Hgb 12.0 L (13.0-17.5) gm/dL Hct 35.7 L (39.0-53.0) % Plt Count 80 L D (150-450) k/uL Lymphocytes # 0.6 L (1.0-4.8) k/uL PT (9.0-12.0) sec INR (<1.2) Sodium (137-145) mmol/L Chloride (98-107) mmol/L Glucose (74-99) mg/dL POC Glucose (mg/dL) (75-99) mg/dL Calcium (8.4-10.2) mg/dL AST (17-59) U/L ALT (21-72) U/L Alkaline Phosphatase (38-126) U/L Troponin I 0.102 H* (0.000-0.034) ng/mL Albumin (3.5-5.0) g/dL Urine Protein 2+ H (Negative) Urine Blood Small H (Negative) Urine WBC 6 H (0-5) /hpf Urine Opiates Screen (NotDetected) Ur Amphetamines Screen (NotDetected) U Methamphetamines Scrn (NotDetected) 12/31/17 12/31/17 01/01/18 Range/Units 22:05 22:05 00:00 RBC (4.30-5.90) m/uL Hgb (13.0-17.5) gm/dL Hct (39.0-53.0) % Plt Count (150-450) k/uL Lymphocytes # (1.0-4.8) k/uL PT 12.9 H (9.0-12.0) sec INR 1.4 H (<1.2) Sodium 119 L* (137-145) mmol/L Chloride 87 L (98-107) mmol/L Glucose 111 H (74-99) mg/dL POC Glucose (mg/dL) (75-99) mg/dL Calcium 8.1 L (8.4-10.2) mg/dL AST 131 H (17-59) U/L ALT 115 H (21-72) U/L Alkaline Phosphatase 164 H (38-126) U/L Troponin I (0.000-0.034) ng/mL Albumin 3.2 L (3.5-5.0) g/dL Urine Protein (Negative) Urine Blood (Negative) Urine WBC (0-5) /hpf Urine Opiates Screen Detected H (NotDetected) Ur Amphetamines Screen Detected H (NotDetected) U Methamphetamines Scrn Detected H (NotDetected) 01/01/18 01/01/18 Range/Units 05:50 06:42 RBC (4.30-5.90) m/uL Hgb (13.0-17.5) gm/dL Hct (39.0-53.0) % Plt Count (150-450) k/uL Lymphocytes # (1.0-4.8) k/uL PT (9.0-12.0) sec INR (<1.2) Sodium (137-145) mmol/L Chloride (98-107) mmol/L Glucose (74-99) mg/dL POC Glucose (mg/dL) 101 H (75-99) mg/dL Calcium (8.4-10.2) mg/dL AST (17-59) U/L ALT (21-72) U/L Alkaline Phosphatase (38-126) U/L Troponin I 0.047 H* (0.000-0.034) ng/mL Albumin (3.5-5.0) g/dL Urine Protein (Negative) Urine Blood (Negative) Urine WBC (0-5) /hpf Urine Opiates Screen (NotDetected) Ur Amphetamines Screen (NotDetected) U Methamphetamines Scrn (NotDetected) Assessment and Plan Plan: This is a 32-year-old male patient who presented to the hospital with signs of sepsis of unclear etiology. Patient also presented with significant thrombocytopenia, hyponatremia and hypochloremia, elevated liver function tests and elevated troponin. His drug testing was positive for opiates, amphetamines and methamphetamines in a patient with known an active IV drug use. Influenza testing has been negative. We do have blood cultures that have been received. He is currently on IV antibiotics in the form of Rocephin and vancomycin. He is currently on IV fluids 0.9 normal saline. Hepatitis panel has been ordered and we will add in HIV testing. Echocardiogram and ultrasound of the gallbladder are pending. Patient may need to have DARIUS done. Continue supportive care. Further recommendations as patient progresses. The above dictated assessment and findings were discussed with Dr. Keene. The impression and plan of care have been directed as dictated. Antonietta Duran nurse practitioner acting as scribe for Dr. Keene.
[2018-01-01] MEDS ORDERED: HYDROmorphone 0.5 MG/0.5 ML SYRINGE IVP STA (08:51)
[2018-01-01] MEDS ORDERED: ONDANSETRON 4 MG/2 ML VIAL IVP PRN (08:54)
[2018-01-01] MEDS ORDERED: DIAZEPAM 5 MG/ML 2 ML INJ IVP STA (09:21)
[2018-01-01] MEDS ORDERED: DIAZEPAM 5 MG TAB PO PRN (09:22)
[2018-01-01] MEDS: METOPROLOL TARTRATE 12.5 MG TAB PO SCH ×3 (10:29→21:03)
[2018-01-01] MEDS: CALCIUM CARBONATE LIQUID 500 MG/5 ML CUP PO SCH ×2 (11:03→17:28)
--- NOTE | 2018-01-01 11:24 | US ---
EXAMINATION TYPE: US gallbladder DATE OF EXAM: 01/01/2018 COMPARISON: CT lumbar spine 01/01/2018 CLINICAL HISTORY: Fever and elevated liver enzymes. Suspected sepsis EXAM MEASUREMENTS: Liver Length: 19.4 cm Gallbladder Wall: 0.4 cm CBD: 0.5 cm Right Kidney: 13.0 x 4.3 x 6.[address] shows low attenuation focus adjacent to the right heart border which is incompletely kuldip luated Pancreas: Tail obscured by overlying bowel gas Liver: enlarged, portal triads appear echogenic, decreased echogenicity suspected within the liver. Gallbladder: No stones seen, thickened gb wall Evidence for sonographic Levi's sign: no CBD: wnl Right Kidney: No hydronephrosis or masses seen and the cortical medullary differentiation is maintai alonso There may be minimal ascites. IMPRESSION: Correlate for possible hepatitis, hepatocellular disease. Thickened gallbladder wall is b orderline. Abnormal low attenuation adjacent to the right heart border, consider dedicated imaging.
--- NOTE | 2018-01-01 11:57 | ECHOF ---
Referral Reason:Fever, evaluate for vegetations or myocarditis MEASUREMENTS -------- HEIGHT: 170.2 cm WEIGHT: 65.8 kg BP: RVIDd: 2.7 cm (< 3.3) IVSd: 0.7 cm (0.6 - 1.1) LVIDd: 5.0 cm (3.9 - 5.3) LVPWd: 1.0 cm (0.6 - 1.1) IVSs: 1.3 cm LVIDs: 3.1 cm LVPWs: 1.8 cm Ao Diam: 3.5 cm (2.0 - 3.7) AV Cusp: 1.6 cm (1.5 - 2.6) LA Diam: 2.3 cm (2.7 - 3.8) MV EXCURSION: 18.395 mm (> 18.000) MV EF SLOPE: 125 mm/s (70 - 150) EPSS: 0.7 cm MV E Eren: 0.71 m/s MV DecT: 300 ms MV A Eren: 0.57 m/s MV E/A Ratio: 1.26 RAP: 5.00 mmHg RVSP: 26.36 mmHg FINDINGS -------- Sinus rhythm. This was a technically good study. The left ventricular size is normal. Left ventricular wall thickness is normal. Overall left vent ricular systolic function is normal with, an EF between 55 - 60 %. The right ventricle is normal in size and function. The left atrium is normal in size. The right atrium is normal in size. The aortic valve is trileaflet and appears structurally normal. The mitral valve is normal. Mild mitral regurgitation is present. The tricuspid valve appears structurally normal. Trace tricuspid regurgitation present. There is no evidence of pulmonary hypertension. The right ventricular systolic pressure, as measured by Dopp ler, is 26.36mmHg. There is no pulmonic regurgitation present. The aortic root size is normal. There is a trivial pericardial effusion present. CONCLUSIONS -------- 1. Sinus rhythm. 2. This was a technically good study. 3. The left ventricular size is normal. 4. Left ventricular wall thickness is normal. 5. Overall left ventricular systolic function is normal with, an EF between 55 - 60 %. 6. The left atrium is normal in size. 7. The aortic valve is trileaflet and appears structurally normal. 8. Mild mitral regurgitation is present. 9. Trace tricuspid regurgitation present. 10. There is no evidence of pulmonary hypertension. 11. There is no pulmonic regurgitation present. 12. The aortic root size is normal. 13. There is a trivial pericardial effusion present. HEALTHCARE NETWORK CONSULTANT: Nimo Lowery RDCS
[2018-01-01 12:03] LABS: Hepatitis A Antibody IgM Non-Reactive (Non-Reactive); Hepatitis B Core IgM Non-Reactive (Non-Reactive)
--- NOTE | 2018-01-01 12:53 | HP ---
HISTORY AND PHYSICAL DATE OF ADMISSION: 01/01/2018. PRESENTING COMPLAINT: Fever. HISTORY OF PRESENTING COMPLAINT: This 32-year-old patient who has been using IV heroin for the last 10 years, lives with his girlfriend who tells me the last use was actually yesterday. He previously had an abscess in the right arm that was treated at [facility]. The patient also had overdosed a few years ago, was in a coma for that for close to a week. The patient presents with 3 to 4 days of fever, cough, some green sputum, decreased appetite, tired, run down. The patient also has chronic back pain, which has been present for quite some time. The patient was febrile in the ER, with abnormal labs. Girlfriend was at the bedside. The patient's influenza screen was negative. Chest x-ray was reported to be negative. The patient actually feels a bit better this morning, actually eating an apple when I got to see him. The patient has been feeling hot and cold. Bowel movements are normal. REVIEW OF SYSTEMS: Constitutional: Tired, febrile. HEENT: Some nasal stuffiness. Respiratory: Some cough. Some clear green sputum. Cardiovascular: None. Gastrointestinal: None. Genitourinary: None. Musculoskeletal: The patient has tattoos. Normally takes his IV heroin in the left arm. Psychiatry: Anxious. Neurological: None. PAST MEDICAL HISTORY: Chronic back pain, pneumothorax, IV drug abuse including methamphetamines and IV heroin. PAST SURGICAL HISTORY: Hernia repair. SOCIAL HISTORY: Patient is unemployed. Smokes at least a pack a day. Lives with girlfriend. Does heroin, at least 60 dollars a day. Has done heroin and IV methamphetamine. FAMILY HISTORY: The patient does not remember. HOME MEDICATIONS: Xanax 0.5 p.o. b.i.d. p.r.n. ALLERGIES: None. PHYSICAL EXAMINATION: On examination, vital signs on presentation are temperature 102.8, pulse 111, respiration 24, blood pressure 105/55, pulse ox 99% on room. GENERAL APPEARANCE: Lying in bed, somewhat tired-appearing. EYES: Pupils equal. Conjunctivae normal. HEENT: External nose and ears normal. The patient has got piercing on the ears. Oral cavity dry mucous membranes. NECK: JVD not raised. Mass not palpable. Respiratory effort. LUNG: Fair entry. CARDIOVASCULAR: 1st and 2nd heart sounds normal. No edema. ABDOMEN: Soft, nontender. Liver and spleen not palpable. LYMPHATIC: No lymph node palpable in neck, axillae, or groin. PSYCHIATRY: Alert. The patient is somewhat anxious-appearing. DERMATOLOGICAL: Multiple tattoos and injection henson on the left arm. INVESTIGATIONS: White count 7.6, hemoglobin 12.0, sodium 119, potassium 4.4, AST 131, ALT 115. Troponin 0.102, 0.047. Urine drug screen positive for opiates, amphetamines, methamphetamine. Lumbar spine shows some spondylolisthesis. Ultrasound of the gallbladder showing some hepatocellular disease, thickened gallbladder is borderline. Chest x-ray negative. EKG sinus tachycardia. ASSESSMENT: 1. Sepsis-like picture. The patient has IV drug abuse. Need to rule out systemic infection. Differential of course includes endocarditis. 2. Probable hepatitis. Patient well could have given his IV drug use. 3. Chronic IV heroin and methamphetamine use. 4. Chronic low back pain from spondylolisthesis. 5. Chronic nicotine dependence, patient is a cigarette smoker. 6. Acute bronchitis. 7. Some heroin withdrawal. PLAN: At this point, the patient will be put on Valium 5 mg 3 times a day, small dose of beta ayaan. Consultation has been made to Infectious Disease. Cardiology spoke at length to the patient and his girlfriend. The patient will also be given a nicotine patch. The patient was already put on vancomycin and ceftriaxone. The patient is hungry, is already eating an apple. Will be putting on a soft bland diet and take it from there. The patient blood has been sent off for hepatitis A, B and C from the ER and HIV, including blood cultures gait. The patient will be given generous IV fluids. MMODL / IJN: [id number] /
[2018-01-01] MEDS ORDERED: KETOROLAC 30 MG/ML 1 ML VIAL IVP STA (13:58)
[2018-01-01 14:02] LABS: Creatine Kinase MB 0.4 ng/mL (0.0-2.4)
[2018-01-01] MEDS: DIAZEPAM 5 MG TAB PO SCH ×3 (14:03→21:03)
[2018-01-01] MEDS: cefTRIAXone IN SWFI 1,000 MG/10 ML SYRINGE IVP SCH ×2 (14:03→23:21)
[2018-01-01] MEDS: VANCOMYCIN 1,250 MG in SODIUM CHLORIDE 0.9% 250 ML IVPB SCH ×2 (14:03→23:21)
[2018-01-01] MEDS: LACTATED RINGERS 1,000 ML IV SCH ×2 (14:04→23:21)
[2018-01-01 14:06] LABS: Troponin I 0.091 ng/mL (0.000-0.034)
--- NOTE | 2018-01-01 17:30 | P.CRDCN ---
History of Present Illness Consult date: 01/01/18 History of present illness: This is a 32-year-old gentleman with history of multiple drug abuse who was admitted through emergency room with complaints of cough, fever, chills and chest pain. Patient claims that the chest pain is in the left precordial area. It increases on deep breathing and coughing. Patient also has severe tenderness. His EKG showed a sinus tachycardia. His cardiac enzymes showed borderline elevation of the troponins which are not consistent with myocardial infarction. Patient has been afebrile since admission. His echocardiogram showed normal LV function without any segmental wall motion defects or valvular dysfunction. Patient at this point, has no signs of for endocarditis. Symptomatic treatment is suggested. ID consult was also requested. If patient has any positive blood cultures, please contact us. Otherwise will be followed as needed Past Medical History Past Medical History: Pneumonia Additional Past Medical History / Comment(s): chronic back pain, pneumothorax History of Any Multi-Drug Resistant Organisms: None Reported Past Surgical History: Hernia Repair Past Anesthesia/Blood Transfusion Reactions: No Reported Reaction Past Psychological History: No Psychological Hx Reported Smoking Status: Current every day smoker Past Alcohol Use History: None Reported Additional Past Alcohol Use History / Comment(s): Patient is a smoker one pack per day for 20 years. Patient is actively using IV drugs. Past Drug Use History: Heroin, IV Drug Use, Methamphetamine - Past Family History Mother History Unknown: Yes Medications and Allergies Home Medications Medication Instructions Recorded Confirmed Type ALPRAZolam [Xanax] 0.5 mg PO BID PRN 12/11/17 12/31/17 History Allergies Allergy/AdvReac Type Severity Reaction Status Date / Time No Known Allergies Allergy Verified 12/31/17 22:14 Physical Exam Vitals: Vital Signs Temp Pulse Pulse Resp BP BP Pulse Ox 01/01/18 15:42 72 22 01/01/18 11:05 98.5 F 72 22 103/57 96 01/01/18 08:00 96.8 F L 98 24 100/56 96 01/01/18 06:40 96.6 F L 69 18 96/51 100 01/01/18 06:16 96.7 F L 01/01/18 05:37 96.6 F L 01/01/18 05:17 68 18 100/56 100 01/01/18 04:18 65 18 102/63 100 01/01/18 03:27 59 L 16 96/51 100 01/01/18 01:50 68 18 97/55 98 01/01/18 00:36 105/57 01/01/18 00:31 99.3 F 69 16 99 12/31/17 23:00 98 20 100 12/31/17 22:42 97 18 97 12/31/17 22:16 20 12/31/17 21:39 102.8 F H 111 H 24 115/55 99 Intake and Output 01/01/18 01/01/18 01/01/18 06:59 14:59 22:59 Intake Total 2240 510 Output Total 625 500 Balance 1615 10 Intake: Intake, IV Titration 2000 Amount Sodium Chloride 0.9% 1, 2000 000 ml @ 100 mls/hr IV . Q10H [facility] Rx#:[id number] Oral 240 510 Output: Urine 625 500 Other: Voiding Method Toilet Toilet Urinal Urinal # Voids 1 Weight 65.771 kg Results 12/31/17 22:05 12/31/17 22:05 Cardiac Enzymes 12/31/17 12/31/17 01/01/18 Range/Units 22:05 22:05 06:42 AST 131 H (17-59) U/L CK-MB (CK-2) <0.2 0.5 (0.0-2.4) ng/mL Troponin I 0.102 H* 0.047 H* (0.000-0.034) ng/mL 01/01/18 Range/Units 12:50 AST (17-59) U/L CK-MB (CK-2) 0.4 (0.0-2.4) ng/mL Troponin I 0.091 H* (0.000-0.034) ng/mL Coagulation 12/31/17 Range/Units 22:05 PT 12.9 H (9.0-12.0) sec APTT 27.7 (22.0-30.0) sec CBC 12/31/17 Range/Units 22:05 WBC 7.6 (3.8-10.6) k/uL RBC 3.88 L (4.30-5.90) m/uL Hgb 12.0 L (13.0-17.5) gm/dL Hct 35.7 L (39.0-53.0) % Plt Count 80 L D (150-450) k/uL Comprehensive Metabolic Panel 12/31/17 Range/Units 22:05 Sodium 119 L* (137-145) mmol/L Potassium 4.4 (3.5-5.1) mmol/L Chloride 87 L (98-107) mmol/L Carbon Dioxide 23 (22-30) mmol/L BUN 15 (9-20) mg/dL Creatinine 1.00 (0.66-1.25) mg/dL Glucose 111 H (74-99) mg/dL Calcium 8.1 L (8.4-10.2) mg/dL AST 131 H (17-59) U/L ALT 115 H (21-72) U/L Alkaline Phosphatase 164 H (38-126) U/L Total Protein 6.3 (6.3-8.2) g/dL Albumin 3.2 L (3.5-5.0) g/dL Current Medications Generic Name Dose Route Start Last Admin Trade Name Freq PRN Reason Stop Dose Admin Acetaminophen 650 mg 01/01/18 00:33 Tylenol Tab PO Q6HR PRN Mild Pain or Fever > 100.5 Calcium Carbonate/Glycine 500 mg 01/01/18 12:30 01/01/18 11:03 Tums Liquid PO 500 mg TID-W/MEALS YANDEL Administration Ceftriaxone Sodium 1,000 mg 01/01/18 12:00 01/01/18 14:03 Rocephin IVP 1,000 mg Q12H YANDEL Administration Diazepam 5 mg 01/01/18 12:00 01/01/18 14:03 Valium PO 5 mg TID YANDEL Administration Vancomycin HCl 1,250 mg/ 250 mls @ 125 mls/hr 01/01/18 12:00 01/01/18 14:03 Sodium Chloride IVPB 125 mls/hr Q12H YANDEL Administration Lactated Ringer's 1,000 mls @ 125 mls/hr 01/01/18 12:30 01/01/18 14:04 Lactated Ringers IV 125 mls/hr .Q8H YANDEL Administration Ketorolac Tromethamine 15 mg 01/01/18 18:00 Toradol IVP 01/05/18 13:58 Q6HR YANDEL Metoprolol Tartrate 12.5 mg 01/01/18 09:30 01/01/18 10:29 Lopressor PO 12.5 mg TID YANDEL Administration Miscellaneous Information 1 each 01/01/18 00:31 01/01/18 01:47 Rx Info: Iv Contrast Was Given MISCELLANE 01/03/18 00:31 1 each DAILY PRN Administration Per Protocol Naloxone HCl 0.2 mg 01/01/18 00:33 Narcan IV Q2M PRN Opioid Reversal Ondansetron HCl 4 mg 01/01/18 08:54 Zofran IVP Q6HR PRN Nausea And Vomiting Intake and Output 01/01/18 01/01/18 01/01/18 06:59 14:59 22:59 Intake Total 2240 510 Output Total 625 500 Balance 1615 10 Intake: Intake, IV Titration 2000 Amount Sodium Chloride 0.9% 1, 2000 000 ml @ 100 mls/hr IV . Q10H YANDEL Rx#:[id number] Oral 240 510 Output: Urine 625 500 Other: Voiding Method Toilet Toilet Urinal Urinal # Voids 1 Weight 65.771 kg 12/31/17 22:05 12/31/17 22:05 EKG Interpretations (text) Sinus rhythm Assessment and Plan (1) Atypical chest pain Current Visit: Yes Status: Acute Code(s): R07.89 - OTHER CHEST PAIN SNOMED Code(s): 850642864 (2) Febrile illness Current Visit: Yes Status: Acute Code(s): R50.9 - FEVER, UNSPECIFIED SNOMED Code(s): 499040564 (3) Hyponatremia Current Visit: Yes Status: Acute Code(s): E87.1 - HYPO-OSMOLALITY AND HYPONATREMIA SNOMED Code(s): 27221155 (4) Troponin level elevated Current Visit: Yes Status: Acute Code(s): R74.8 - ABNORMAL LEVELS OF OTHER SERUM ENZYMES SNOMED Code(s): 057933921 Plan: Patient's troponin elevation is indeterminate and not consistent with myocardial infarctions. A chest pains are atypical and muscular skeletal. Echo Cardigan showed normal LV function without any segmental wall motion defects. There is no evidence of endocarditis at this time. If the blood cultures are positive, please reconsult us. Otherwise, we'll see him on when necessary basis
[2018-01-01] MEDS: KETOROLAC 30 MG/ML 1 ML VIAL IVP SCH ×2 (17:31→23:21)
[2018-01-01 20:49] LABS: HIV AB P24 Non-Reactive (Non-Reactive); HIV P24 AG Non-Reactive (Non-Reactive)
--- NOTE | 2018-01-01 21:50 | P.CON ---
Consult Note - . Consult date: 01/01/18 Assessment/Plan:: This is a 32-year-old male patient gives history of IV drug use for the past 10 years and last use 4-5 days ago. He states he has had an abscess in his right arm and treated at [facility] almost lost his arm at that time. He has also overdosed 8 years ago and was in a coma for 6-1/2 days was treated for pneumonia. Patient denies history of endocarditis. Patient states he had onset of fever, dyspnea, cough with green sputum production, decreased appetite and generalized malaise for the past 4 days. He does have chronic back pain which is more severe since this illness started. He presented to [facility] emergency center with temperature 102.8, white count is 7.6, platelet count of 80, sodium 119 and chloride 87. Creatinine was 1. Liver function tests were elevated and troponin was elevated at 0.102. Albumin was 3.2. Urinalysis was clear with blood small and protein 2+. Urine drug screen was positive for opiates, amphetamines and methamphetamines. Influenza testing was negative. He underwent a chest x-ray that showed no acute cardio pulmonary disease. Lumbar spine CAT scan showed spondylolisthesis. No acute bony abnormality. No focal bone destruction to suggest osteomyelitis. There was mild subsegmental atelectasis at the lung bases. Please see the consult note as dictated by DENTAL OFFICE COORDINATOR Mrs. Antonietta Duran. Patient relates to injecting herioin as well as multiple other substances. Has chronic back pain which has worsened with the current illness. concern a this time to endocarditis as well a potential infection of the spine. CT did not reveal and obvious infection of the spine and DARIUS is likely soon. Repeat cultures to gauge clearance of the bacteremia. Patient is informed of the crucial nature of the infection and need for treatment, and lack of appropriate care may result in . Antibiotic therapy with vancomycin and Rocephin for now. will need assistance with detox and rehab at discharge. Antibiotic therapy at discharge will be challenging. I agree with evaluation assessment and plan as dictated by nurse practitioner Mrs. Antonietta Duran.
[2018-01-02] MEDS: KETOROLAC 30 MG/ML 1 ML VIAL IVP SCH ×4 (05:40→23:38)
[2018-01-02] MEDS: CALCIUM CARBONATE LIQUID 500 MG/5 ML CUP PO SCH ×3 (05:40→17:18)
[2018-01-02] MEDS: DIAZEPAM 5 MG TAB PO SCH ×3 (05:49→20:59)
[2018-01-02] MEDS: LACTATED RINGERS 1,000 ML IV SCH ×3 (05:51→20:54)
[2018-01-02 07:00] LABS: HCT 37.9 % (39.0-53.0); MCHC 34.3 g/dL (31.0-37.0); MCV 90.2 fL (80.0-100.0); Mean Platelet Volume 9.6; Platelet Count 71 k/uL (150-450); RDW 13.2 % (11.5-15.5); WBC 11.8 k/uL (3.8-10.6)
[2018-01-02 07:26] LABS: Band Neutrophils % 9 %; Eosinophils # (M) 0.12 k/uL (0-0.7); Lymphocytes # (M) 0.94 k/uL (1.0-4.8); Monocytes # (M) 0.59 k/uL (0-1.0); Neutrophils % (M) 78 %; Nucleated Red Blood Cells 0 /100 WBC (0-0); Total Cells Counted 200
[2018-01-02 07:47] LABS: ALT 91 U/L (21-72); AST 95 U/L (17-59); Albumin 2.4 g/dL (3.5-5.0); Alkaline Phosphatase 189 U/L (38-126); Anion Gap 9 mmol/L; Blood Urea Nitrogen 18 mg/dL (9-20); Calcium 8.2 mg/dL (8.4-10.2); Carbon Dioxide 21 mmol/L (22-30); Chloride 104 mmol/L (98-107); Glucose 91 mg/dL (74-99); Sodium 134 mmol/L (137-145); Total Bilirubin 0.8 mg/dL (0.2-1.3); Total Protein 5.3 g/dL (6.3-8.2)
[2018-01-02] MEDS: METOPROLOL TARTRATE 12.5 MG TAB PO SCH ×3 (07:53→20:56)
[2018-01-02 07:56] LABS: Potassium 4.8 mmol/L (3.5-5.1)
[2018-01-02] MEDS ORDERED: VANCOMYCIN TROUGH DUE 1 EACH MISC MISCELLANE ONE (11:00)
[2018-01-02] MEDS: VANCOMYCIN 1,250 MG in SODIUM CHLORIDE 0.9% 250 ML IVPB SCH ×2 (11:40→20:59)
[2018-01-02] MEDS: cefTRIAXone IN SWFI 1,000 MG/10 ML SYRINGE IVP SCH ×2 (11:41→23:36)
[2018-01-02] MEDS: NICOTINE 14MG/24HR PATCH TRANSDERM SCH (13:30)
--- NOTE | 2018-01-02 14:56 | P.PN ---
Subjective Progress Note Date: 01/02/18 This is a 32-year-old gentleman with history of multiple drug abuse who was admitted through emergency room with complaints of cough, fever, chills and chest pain. Patient claims that the chest pain is in the left precordial area. It increases on deep breathing and coughing. Patient also has severe tenderness. His EKG showed a sinus tachycardia. His cardiac enzymes showed borderline elevation of the troponins which are not consistent with myocardial infarction. Patient has been afebrile since admission. His echocardiogram showed normal LV function without any segmental wall motion defects or valvular dysfunction. Patient at this point, has no signs of for endocarditis. Symptomatic treatment is suggested. ID consult was also requested. If patient has any positive blood cultures, please contact us. Otherwise will be followed as needed. 01/02/2018 Patient seen and examined this morning, very sleepy, barely opens eyes in conversation. It was explained to the patient, that he has positive blood cultures and a request was made for cardiology to perform a transesophageal echocardiographic study today. The risks and benefits of the procedure were explained to the patient in detail by Dr. Hubbard. This will be performed tomorrow, and patient is willing to proceed. Blood cultures gram-positive cocci in clusters. Patient also has presumptive MRSA in the blood. Blood pressure 99/50, heart rate in the 70s. Echocardiogram with Doppler study was performed which revealed a normal left ventricular systolic function. Objective - Vital Signs Vital signs: Vital Signs Temp 97.6 F 01/02/18 11:24 Pulse 83 01/02/18 11:25 Resp 16 01/02/18 11:25 BP 97/51 01/02/18 11:24 Pulse Ox 97 01/02/18 11:24 Intake & Output 01/01/18 01/02/18 01/02/18 18:59 06:59 18:59 Intake Total 510 200 Output Total 500 Balance 10 200 Intake: Oral 510 200 Output: Urine 500 Other: Voiding Method Toilet Toilet Toilet Urinal Urinal Urinal # Voids 2 1 # Bowel Movements 1 - Exam PHYSICAL EXAMINATION: HEENT: Head is atraumatic, normocephalic. Pupils equal, round. Neck is supple. There is no elevated jugular venous pressure. HEART EXAMINATION: Heart S1, S2 normal. No murmur or gallop heard. CHEST EXAMINATION: Lungs are clear to auscultation and precussion. No chest wall tenderness is noted on palpation or with deep breathing. ABDOMEN: Soft, nontender. Bowel sounds are heard. No organomegaly noted. EXTREMITIES: 2+ peripheral pulses with no evidence of peripheral edema and no calf tenderness noted. NEUROLOGIC patient is sleepy . - Labs CBC & Chem 7: 01/02/18 06:36 01/02/18 06:36 Labs: Abnormal Lab Results - Last 24 Hours (Table) 01/02/18 01/02/18 Range/Units 06:36 06:36 WBC 11.8 H (3.8-10.6) k/uL RBC 4.20 L (4.30-5.90) m/uL Hct 37.9 L (39.0-53.0) % Plt Count 71 L (150-450) k/uL Neutrophils # (Manual) 10.20 H (1.3-7.7) k/uL Lymphocytes # (Manual) 0.94 L (1.0-4.8) k/uL Sodium 134 L (137-145) mmol/L Carbon Dioxide 21 L (22-30) mmol/L Calcium 8.2 L (8.4-10.2) mg/dL AST 95 H (17-59) U/L ALT 91 H (21-72) U/L Alkaline Phosphatase 189 H (38-126) U/L Total Protein 5.3 L (6.3-8.2) g/dL Albumin 2.4 L (3.5-5.0) g/dL Microbiology - Last 24 Hours (Table) 12/31/17 22:05 Blood Culture Gram Stain - Preliminary Blood Blood Culture - Preliminary Presumptive MRSA 12/31/17 22:05 Blood Culture - Final Blood 12/31/17 22:00 Urine Culture - Preliminary Urine,Voided Assessment and Plan Plan: Assessment and plan #1 sepsis, gram-positive cocci in clusters in blood, presumptive MRSA in the blood. #2 drug abuse #3 nicotine dependence #4 echocardiogram with Doppler study revealed normal left ventricular systolic function Plan The scheduled to undergo transesophageal echocardiographic study tomorrow by Dr. Hubbard to rule out endocarditis. The risks and benefits were explained to the patient in detail and he is willing to proceed. DNP note has been reviewed, I agree with a documented findings and plan of care. Patient was seen and examined.
--- NOTE | 2018-01-02 16:23 | P.PN ---
Progress Note - Text Progress Note Date: 01/02/18 DATE OF SERVICE: 01/02/2018 PRESENTING COMPLAINT: Fever HISTORY OF PRESENT ILLNESS: 32-year-old male history of IV heroin use for the last 10 years lives with a girlfriend, has a history of abscess in the right arm, as well as overdosing and being in a coma. Presents to the emergency department with 3-4 days of fever, cough some green sputum, decreased appetite feeling tired and rundown. Has a history of chronic back pain for which has been present for some time. Febrile in the emergency department with abnormal labs, influenza screen was negative chest x-ray was negative. Patient did have a sepsis-like picture and was admitted for the same. INTERVAL HISTORY: 01/02/2018: Lying in bed with girlfriend at his side. Does not appear to be in acute distress. Appears comfortable. Resting quietly. Answers questions but does seem somewhat lethargic. Continues on Valium and beta ayaan for symptoms of withdrawal. Patient has not had any heroin in the last couple of days. Plans for possible DARIUS today. Currently nothing by mouth awaiting that decision. Last BM prior to admission REVIEW OF SYSTEMS: Done for constitutional ,cardiovascular, GI, pulmonary with relevant findings as above. CURRENT MEDICATIONS Acetaminophen, Tums, Rocephin, Valium, Toradol, lactated Ringer's, Lopressor, Narcan, nicotine patch, Zofran, vancomycin. PHYSICAL EXAM VITAL SIGNS: Temperature 97.1, pulse 77, respiratory rate 16, blood pressures 99/53, oxygen saturation 97% on room air. GENERAL APPEARANCE: Lying in bed, not in distress. HENT: Normocephalic, JVD not raised. Mass not palpable. Oral cavity normal, external appearance of ears and nose normal. EYES:Pupils equal. Conjunctiva normal. RESPIRATORY: Respiratory effort normal. Lungs clear to auscultation. CARDIOVASCULAR: First and second sounds normal. No edema. ABDOMEN: Soft. Liver and spleen not palpable. No tenderness. No mass palpable. PSYCHIATRY: Alert and oriented x3. Mood and affect somewhat lethargic INVESTIGATIONS: LABS: White blood cell count 11.8, hemoglobin 13.0, sodium 134, carbon dioxide 21, Blood cultures: Presumptive MRSA Echocardiogram: Normal left ventricular systolic function. ASSESSMENT: -Sepsis-like picture, has IV drug use history, blood cultures positive for presumptive MRSA. Endocarditis remains in the differential. -Probable hepatitis in a patient with IV drug use history, hepatitis A, B, and C are all 3 negative. -Chronic IV heroin and methamphetamine use. -Chronic low back pain from spondylolisthesis. -Chronic nicotine dependence, patient is a cigarette smoker. -Acute bronchitis. -Heroin withdrawal, improving -Hyponatremia likely due to decreased intake PLAN: Continue beta ayaan and Valium on a twice a day schedule. Metoprolol to be held if patient's heart rate goes below 50. Continue patient on vancomycin and ceftriaxone. DARIUS to be done tomorrow. IV fluids continue. Plan of care discussed at the bedside patient's agreeable. We'll follow closely. MRI SPECIALIST statement: Patient was seen and examined by nurse practitioner Tana Pan and all elements of the case discussed with attending Dr. Pagan
--- NOTE | 2018-01-02 20:33 | PN ---
PROGRESS NOTE DATE OF SERVICE: 01/02/18. PRESENTING COMPLAINT: Fever. INTERVAL HISTORY: This is a patient with IV drug abuse, had come in rather delirious. Tolerating his diet. PHYSICAL EXAMINATION: Afebrile, pulse 77, respirations 16, blood pressure 99/56, pulse ox 97% on room air. LUNGS: Fair entry. CARDIOVASCULAR: First and second sounds normal. Patient is tired appearing. INVESTIGATIONS: White count 11.8, potassium 4.8. Troponin 0.091. ASSESSMENT: 1. Sepsis with blood cultures positive for MRSA in an IV drug abuser. Endocarditis in the differential. DARIUS has been postponed until tomorrow. 2. Chronic IV heroin and methamphetamine use. 3. Chronic low back pain with spondylolisthesis. 4. Chronic nicotine dependence. Patient is a cigarette smoker. 5. Acute bronchitis. 6. Heroin withdrawal, improving. 7. Severe hyponatremia likely hypoosmolar, improved. Hepatitis A, B, C, HIV all negative. Blood cultures showing MRSA. Await DARIUS. MMODL / IJN: [id number] /
--- NOTE | 2018-01-02 22:19 | P.PN ---
Subjective Progress Note Date: 01/02/18 Principal diagnosis: Fever This is a 32-year-old male patient gives history of IV drug use for the past 10 years and last use 4-5 days ago. He states he has had an abscess in his right arm and treated at [facility] almost lost his arm at that time. He has also overdosed 8 years ago and was in a coma for 6-1/2 days was treated for pneumonia. Patient denies history of endocarditis. Patient states he had onset of fever, dyspnea, cough with green sputum production, decreased appetite and generalized malaise for the past 4 days. He does have chronic back pain which is more severe since this illness started. He presented to [facility] emergency center with temperature 102.8, white count is 7.6, platelet count of 80, sodium 119 and chloride 87. Creatinine was 1. Liver function tests were elevated and troponin was elevated at 0.102. Albumin was 3.2. Urinalysis was clear with blood small and protein 2+. Urine drug screen was positive for opiates, amphetamines and methamphetamines. Influenza testing was negative. He underwent a chest x-ray that showed no acute cardio pulmonary disease. Lumbar spine CAT scan showed spondylolisthesis. No acute bony abnormality. No focal bone destruction to suggest osteomyelitis. There was mild subsegmental atelectasis at the lung bases. On 01/02/2018 patient is feeling slightly better. His symptoms of yesterday of some nausea and sweating and jitteriness are improved today. He is denying nausea or emesis today is unable to eat his meals looks forward to taking a shower. Nursing staff have related there is some concern that the patient's significant other may have brought him in contraband medication. Objective - Vital Signs Vital signs: Vital Signs Temp 98.4 F 01/02/18 20:00 Pulse 81 01/02/18 20:00 Resp 18 01/02/18 20:00 BP 114/62 01/02/18 20:00 Pulse Ox 98 01/02/18 20:00 Intake & Output 01/02/18 01/02/18 01/03/18 06:59 18:59 06:59 Intake Total 200 160 Output Total 450 Balance 200 -290 Intake: Oral 200 160 Output: Urine 450 Other: Voiding Method Toilet Toilet Toilet Urinal Urinal Urinal # Voids 2 1 # Bowel Movements 1 1 - Exam Gen: This is a thin 32-year-old male. Now much more comfortable no longer wincing in pain and she is getting ready to happen to take a shower HEENT: Head is atraumatic, normocephalic. Pupils equal, round. Sclerae is anicteric. Conjunctiva pink. NECK: Supple. No JVD. No lymphadenopathy. No thyromegaly. LUNGS: Clear to auscultation. No wheezes or rhonchi. No intercostal retractions. HEART: Regular rate and rhythm. Soft 2/6 systolic murmur left sternal border without radiation. ABDOMEN: Soft. Bowel sounds are present. No masses. No tenderness. EXTREMITIES: No pedal edema. No calf tenderness. 1+ dorsalis pedis palpable bilaterally NEUROLOGICAL: Patient is awake, alert and oriented x3. He has noted the skin and is highly tattooed, no new tattoos or open skin lesions are seen evidence of any dana phlebitis is noted at this time. - Labs CBC & Chem 7: 01/02/18 06:36 01/02/18 06:36 Labs: Abnormal Lab Results - Last 24 Hours (Table) 01/02/18 01/02/18 Range/Units 06:36 06:36 WBC 11.8 H (3.8-10.6) k/uL RBC 4.20 L (4.30-5.90) m/uL Hct 37.9 L (39.0-53.0) % Plt Count 71 L (150-450) k/uL Neutrophils # (Manual) 10.20 H (1.3-7.7) k/uL Lymphocytes # (Manual) 0.94 L (1.0-4.8) k/uL Sodium 134 L (137-145) mmol/L Carbon Dioxide 21 L (22-30) mmol/L Calcium 8.2 L (8.4-10.2) mg/dL AST 95 H (17-59) U/L ALT 91 H (21-72) U/L Alkaline Phosphatase 189 H (38-126) U/L Total Protein 5.3 L (6.3-8.2) g/dL Albumin 2.4 L (3.5-5.0) g/dL Microbiology - Last 24 Hours (Table) 12/31/17 22:00 Urine Culture - Final Urine,Voided 12/31/17 22:05 Blood Culture Gram Stain - Preliminary Blood Blood Culture - Preliminary Presumptive MRSA Laboratory Results WBC 11.8 k/uL (3.8-10.6) H 01/02/18 06:36 RBC 4.20 m/uL (4.30-5.90) L 01/02/18 06:36 Hgb 13.0 gm/dL (13.0-17.5) 01/02/18 06:36 Hct 37.9 % (39.0-53.0) L 01/02/18 06:36 MCV 90.2 fL (80.0-100.0) 01/02/18 06:36 MCH 31.0 pg (25.0-35.0) 01/02/18 06:36 MCHC 34.3 g/dL (31.0-37.0) 01/02/18 06:36 RDW 13.2 % (11.5-15.5) 01/02/18 06:36 Plt Count 71 k/uL (150-450) L 01/02/18 06:36 Neutrophils % 85 % 12/31/17 22:05 Neutrophils % (Manual) 78 % 01/02/18 06:36 Band Neutrophils % 9 % 01/02/18 06:36 Lymphocytes % 7 % 12/31/17 22:05 Lymphocytes % (Manual) 8 % 01/02/18 06:36 Monocytes % 5 % 12/31/17 22:05 Monocytes % (Manual) 5 % 01/02/18 06:36 Eosinophils % 1 % 12/31/17 22:05 Eosinophils % (Manual) 1 % 01/02/18 06:36 Basophils % 0 % 12/31/17 22:05 Neutrophils # 6.4 k/uL (1.3-7.7) 12/31/17 22:05 Neutrophils # (Manual) 10.20 k/uL (1.3-7.7) H 01/02/18 06:36 Lymphocytes # 0.6 k/uL (1.0-4.8) L 12/31/17 22:05 Lymphocytes # (Manual) 0.94 k/uL (1.0-4.8) L 01/02/18 06:36 Monocytes # 0.4 k/uL (0-1.0) 12/31/17 22:05 Monocytes # (Manual) 0.59 k/uL (0-1.0) 01/02/18 06:36 Eosinophils # 0.1 k/uL (0-0.7) 12/31/17 22:05 Eosinophils # (Manual) 0.12 k/uL (0-0.7) 01/02/18 06:36 Basophils # 0.0 k/uL (0-0.2) 12/31/17 22:05 Nucleated RBCs 0 /100 WBC (0-0) 01/02/18 06:36 Manual Slide Review Performed 01/02/18 06:36 PT 12.9 sec (9.0-12.0) H 12/31/17 22:05 INR 1.4 (<1.2) H 12/31/17 22:05 APTT 27.7 sec (22.0-30.0) 12/31/17 22:05 Sodium 134 mmol/L (137-145) L 01/02/18 06:36 Potassium 4.8 mmol/L (3.5-5.1) 01/02/18 06:36 Chloride 104 mmol/L (98-107) 01/02/18 06:36 Carbon Dioxide 21 mmol/L (22-30) L 01/02/18 06:36 Anion Gap 9 mmol/L 01/02/18 06:36 BUN 18 mg/dL (9-20) 01/02/18 06:36 Creatinine 0.75 mg/dL (0.66-1.25) 01/02/18 06:36 Est GFR (MDRD) Af Amer >60 (>60 ml/min/1.73 sqM) 01/02/18 06:36 Est GFR (MDRD) Non-Af >60 (>60 ml/min/1.73 sqM) 01/02/18 06:36 Glucose 91 mg/dL (74-99) 01/02/18 06:36 POC Glucose (mg/dL) 101 mg/dL (75-99) H 01/01/18 05:50 POC Glu Laundry Supervisor ID Watt Nubia 01/01/18 05:50 Plasma Lactic Acid Ki 1.1 mmol/L (0.7-2.0) 02/13/18 22:05 Calcium 8.2 mg/dL (8.4-10.2) L 01/02/18 06:36 Total Bilirubin 0.8 mg/dL (0.2-1.3) 01/02/18 06:36 AST 95 U/L (17-59) H 01/02/18 06:36 ALT 91 U/L (21-72) H 01/02/18 06:36 Alkaline Phosphatase 189 U/L (38-126) H 01/02/18 06:36 Ammonia 24 umol/L (<30) 01/02/18 07:07 Total Creatine Kinase 79 U/L (55-170) 01/01/18 12:50 CK-MB (CK-2) 0.4 ng/mL (0.0-2.4) 01/01/18 12:50 CK-MB (CK-2) Rel Index 0.5 01/01/18 12:50 Troponin I 0.091 ng/mL (0.000-0.034) H* 01/01/18 12:50 Total Protein 5.3 g/dL (6.3-8.2) L 01/02/18 06:36 Albumin 2.4 g/dL (3.5-5.0) L 01/02/18 06:36 Urine Color Yellow 12/31/17 22:00 Urine Appearance Clear (Clear) 12/31/17 22:00 Urine pH 6.0 (5.0-8.0) 12/31/17 22:00 Ur Specific [place] 1.016 (1.001-1.035) 12/31/17 22:00 Urine Protein 2+ (Negative) H 12/31/17 22:00 Urine Glucose (UA) Negative (Negative) 12/31/17 22:00 Urine Ketones Negative (Negative) 12/31/17 22:00 Urine Blood Small (Negative) H 12/31/17 22:00 Urine Nitrite Negative (Negative) 12/31/17 22:00 Urine Bilirubin Negative (Negative) 12/31/17 22:00 Urine Urobilinogen 3.0 mg/dL (<2.0) 12/31/17 22:00 Ur Leukocyte Esterase Negative (Negative) 12/31/17 22:00 Urine RBC 1 /hpf (0-5) 12/31/17 22:00 Urine WBC 6 /hpf (0-5) H 12/31/17 22:00 Ur Squamous Epith Cells <1 /hpf (0-4) 12/31/17 22:00 Vancomycin Trough 9.2 ug/mL 01/02/18 11:06 Urine Opiates Screen Detected (NotDetected) H 01/01/18 00:00 Ur Oxycodone Screen Not Detected (NotDetected) 01/01/18 00:00 Urine Methadone Screen Not Detected (NotDetected) 01/01/18 00:00 Ur Propoxyphene Screen Not Detected (NotDetected) 01/01/18 00:00 Ur Barbiturates Screen Not Detected (NotDetected) 01/01/18 00:00 U Tricyclic Antidepress Not Detected (NotDetected) 01/01/18 00:00 Ur Phencyclidine Scrn Not Detected (NotDetected) 01/01/18 00:00 Ur Amphetamines Screen Detected (NotDetected) H 01/01/18 00:00 U Methamphetamines Scrn Detected (NotDetected) H 01/01/18 00:00 U Benzodiazepines Scrn Not Detected (NotDetected) 01/01/18 00:00 Urine Cocaine Screen Not Detected (NotDetected) 01/01/18 00:00 U Marijuana (THC) Screen Not Detected (NotDetected) 01/01/18 00:00 Hepatitis A IgM Ab Non-Reactive (Non-Reactive) 01/01/18 00:00 Hep Bs Antigen Non-Reactive (Non-Reactive) 01/01/18 00:00 Hep B Core IgM Ab Non-Reactive (Non-Reactive) 01/01/18 00:00 Hep C IgG Ab Non-Reactive (Non-Reactive) 01/01/18 00:00 HIV-1 Antibody Non-Reactive (Non-Reactive) 01/01/18 12:50 HIV Ag/Ab Interpret (()) 01/01/18 12:50 HIV p24 Antibody Non-Reactive (Non-Reactive) 01/01/18 12:50 HIV-2 Antibody Non-Reactive (Non-Reactive) 01/01/18 12:50 HIV P24 Antigen Non-Reactive (Non-Reactive) 01/01/18 12:50 Influenza Type A RNA Not Detected (Not Detectd) 12/31/17 22:05 Influenza Type B (PCR) Not Detected (Not Detectd) 12/31/17 22:05 Microbiology 12/31/17 22:00 Urine,Voided Urine Culture - Final 12/31/17 22:05 Blood Blood Culture Gram Stain - Preliminary 12/31/17 22:05 Blood Blood Culture - Preliminary Presumptive MRSA 12/31/17 22:05 Blood Blood Culture - Final Assessment and Plan (1) Sepsis Current Visit: Yes Status: Acute Code(s): A41.9 - SEPSIS, UNSPECIFIED ORGANISM SNOMED Code(s): 24141367 (2) MRSA bacteremia Narrative/Plan: 32-year-old male presented hospital was to be in fever and feeling very ill is found to have evidence of bacteremia now likely with MRSA. As noted has a history of active heroin as well as other drug abuse is injection in nature. The patient has been seen by cardiology and DARIUS is planned. Overall goal is to further evaluate underlying endocarditis which appears to be likely at this time. Antibiotic therapy continues with vancomycin and Rocephin given the fact that his fever is improved and he clinically is improving. The patient does not voice any desire to go into a rehab program at discharge. He will not be a candidate for outpatient intravenous antibiotic therapy. We' ll have to work with the insurance to see if he is a candidate for Zyvox if that is a possibility. Repeat blood cultures are requested to ensure that he is having clearance of his bacteremia. His girlfriend is present her questions are answered to the best ability. Fortunately his HIV as well as hepatitis A, B, and C testing is all negative. Current Visit: Yes Status: Acute Code(s): R78.81 - BACTEREMIA SNOMED Code( s): 61855795767100317 (3) Endocarditis Current Visit: Yes Status: Acute Code(s): I38 - ENDOCARDITIS, VALVE UNSPECIFIED SNOMED Code(s): 91148412 (4) Leukocytosis Current Visit: Yes Status: Acute Code(s): D72.829 - ELEVATED WHITE BLOOD CELL COUNT, UNSPECIFIED SNOMED Code(s): 560493487
[2018-01-03] MEDS: VANCOMYCIN 1,250 MG in SODIUM CHLORIDE 0.9% 250 ML IVPB SCH ×2 (05:04→12:34)
[2018-01-03] MEDS: KETOROLAC 30 MG/ML 1 ML VIAL IVP SCH ×4 (05:07→23:39)
[2018-01-03 06:25] LABS: Anion Gap 5 mmol/L; Blood Urea Nitrogen 11 mg/dL (9-20); Calcium 7.4 mg/dL (8.4-10.2); Carbon Dioxide 26 mmol/L (22-30); Chloride 99 mmol/L (98-107); Glucose 100 mg/dL (74-99); Potassium 3.8 mmol/L (3.5-5.1); Sodium 130 mmol/L (137-145)
[2018-01-03] MEDS: CALCIUM CARBONATE LIQUID 500 MG/5 ML CUP PO SCH ×3 (08:45→15:35)
[2018-01-03] MEDS: METOPROLOL TARTRATE 12.5 MG TAB PO SCH ×2 (08:46→20:50)
[2018-01-03] MEDS: cefTRIAXone IN SWFI 1,000 MG/10 ML SYRINGE IVP SCH ×3 (12:31→23:39)
[2018-01-03] MEDS: NICOTINE 14MG/24HR PATCH TRANSDERM SCH (12:37)
--- NOTE | 2018-01-03 13:57 | P.PN ---
Progress Note - Text Progress Note Date: 01/03/18 DATE OF SERVICE: 01/03/2018 PRESENTING COMPLAINT: Fever HISTORY OF PRESENT ILLNESS: 32-year-old male history of IV heroin use for the last 10 years lives with a girlfriend, has a history of abscess in the right arm, as well as overdosing and being in a coma. Presents to the emergency department with 3-4 days of fever, cough some green sputum, decreased appetite feeling tired and rundown. Has a history of chronic back pain for which has been present for some time. Febrile in the emergency department with abnormal labs, influenza screen was negative chest x-ray was negative. Patient did have a sepsis-like picture and was admitted for the same. INTERVAL HISTORY: 01/03/2018: Lying in bed with girlfriend at his side. A friend sitting in the chair at the bedside. Appears to not be in any acute distress quite lethargic in fact. Takes quite a bit of time for him to wake up and answer questions. Does not appear to have any further symptoms of acute heroin withdrawal. Patient room and his IV, unable to place patient cries every time it is attempted to be replaced. Eating and drinking appropriately. Was nothing by mouth for DARIUS and Patient did refuse his DARIUS this morning. Patient requested from the nurse to get antibiotics is going to be sent home on an to discharge him. Nurse practitioner explained to the patient it is not appropriate to discharge him without all the testing being completed and waiting for infectious disease to finalize antibiotic treatment. Girlfriend assured MANAGER DIALYSIS the patient would comply and have the DARIUS done. Tolerating his diet over previous days. Last BM 2017. Ambulatory to and from the bathroom without difficulty. 01/02/2018: Lying in bed with girlfriend at his side. Does not appear to be in acute distress. Appears comfortable. Resting quietly. Answers questions but does seem somewhat lethargic. Continues on Valium and beta ayaan for symptoms of withdrawal. Patient has not had any heroin in the last couple of days. Plans for possible DARIUS today. Currently nothing by mouth awaiting that decision. Last BM prior to admission REVIEW OF SYSTEMS: Done for constitutional ,cardiovascular, GI, pulmonary with relevant findings as above. CURRENT MEDICATIONS Acetaminophen, Tums, Toradol, Narcan, lactated Ringer's, nicotine patch, Zofran, vancomycin PHYSICAL EXAM VITAL SIGNS: Temperature 100.6, pulse 83, respiratory rate 16, blood pressure 115/58, oxygen saturation 95% on room air. GENERAL APPEARANCE: Lying in bed, not in distress. HENT: Normocephalic, JVD not raised. Mass not palpable. Oral cavity normal, external appearance of ears and nose normal. EYES:Pupils equal. Conjunctiva normal. RESPIRATORY: Respiratory effort normal. Lungs clear to auscultation. CARDIOVASCULAR: First and second sounds normal. No edema. ABDOMEN: Soft. Liver and spleen not palpable. No tenderness. No mass palpable. PSYCHIATRY: Alert and oriented x3. Mood and affect somewhat lethargic INVESTIGATIONS: LABS: Sodium 130, Blood cultures: MRSA Echocardiogram: Normal left ventricular systolic function. ASSESSMENT: -Sepsis with blood cultures positive for MRSA and an IV drug abuser. Endocarditis in the differential, DARIUS has been performed today. -Chronic IV heroin and methamphetamine use. -Chronic low back pain from spondylolisthesis. -Chronic nicotine dependence, patient is a cigarette smoker. -Acute bronchitis. -Heroin withdrawal, improving -Severe Hyponatremia likely hypoosmolar slow to respond PLAN: Valium and beta ayaan discontinued as patient is no longer having symptoms of withdrawal. Continue patient on vancomycin and ceftriaxone. DARIUS completed today and await results. Infectious disease to finalize Zyvox for discharge. Patient is very anxious to leave, attempted to educate the patient regarding his current condition importance of completing all testing and waiting for antibiotic therapy. Did refuse DARIUS initially but did become agreeable and tests is been completed. Plan of care discussed at the bedside. We'll follow closely. MANAGER DIALYSIS statement: Patient was seen and examined by nurse practitioner Tana Pan and all elements of the case discussed with attending Dr. Pagan
[2018-01-03] MEDS ORDERED: PROPOFOL 10 MG/ML 20 ML VIAL IV ONE (14:13)
[2018-01-03] MEDS ORDERED: fentaNYL (PF) 50 MCG/ML 2 ML AMP ONE (14:13)
[2018-01-03] MEDS ORDERED: LIDOCAINE 1% INJ 10MG/ML (20 ML MDV) ONE (14:13)
[2018-01-03] MEDS ORDERED: MIDAZOLAM 2 MG/2 ML VIAL ONE (14:13)
[2018-01-03] MEDS ORDERED: SODIUM CHLORIDE 0.9% 1,000 ML IV ONE (14:15)
--- NOTE | 2018-01-03 14:39 | P.TEE ---
Indications for Procedure(s): Rule out endocarditis Date of Procedure: 01/03/18 Preoperative Diagnosis: Staph septicemia, drug abuse, rule out endocarditis Postoperative Diagnosis: No evidence of endocarditis on this study Description of Procedure(s): INDICATION: Rule out endocarditis CONSENT:. Verbal consent was obtained from the patient PROCEDURE:. Patient was brought to the lab in a fasting state. He was Prepped and draped in the usual fashion. Patient was given ibuprofen for sedation by department of anesthesia. The throat was sprayed with Hurricaine. A lubricated Omni probe was introduced into the oropharynx and was advanced into the esophagus. Multiple views were obtained. Color and pulse Doppler were obtained. Saline contrast bubble injections were also performed FINDINGS: The aortic valve is tricuspid and opening normally. No evidence of stenosis or regurgitation. Mitral valve appeared to be normal without any regurgitation or stenosis. Tricuspid valve appeared to be normal without evidence of stenosis or regurgitation. No evidence of vegetation on any of the valves. Pneumonic valve is suboptimally visualized, but function normally. LV function is normal. No clot in left atrial appendage. No shunt across the interatrial septum IMPRESSION:, Normal study. No evidence of endocarditis PLAN:. Continue current medical therapy.
[2018-01-03] MEDS: DIAZEPAM 5 MG TAB PO SCH ×2 (15:27→20:50)
[2018-01-03] MEDS: DAPTOmycin 500 MG in SODIUM CHLORIDE 0.9% 50 ML IV SCH (15:38)
[2018-01-03] MEDS: LACTATED RINGERS 1,000 ML IV SCH ×2 (20:40→23:44)
--- NOTE | 2018-01-03 21:20 | P.PN ---
Subjective Progress Note Date: 01/03/18 Principal diagnosis: Fever This is a 32-year-old male patient gives history of IV drug use for the past 10 years and last use 4-5 days ago. He states he has had an abscess in his right arm and treated at [facility] almost lost his arm at that time. He has also overdosed 8 years ago and was in a coma for 6-1/2 days was treated for pneumonia. Patient denies history of endocarditis. Patient states he had onset of fever, dyspnea, cough with green sputum production, decreased appetite and generalized malaise for the past 4 days. He does have chronic back pain which is more severe since this illness started. He presented to [facility] emergency center with temperature 102.8, white count is 7.6, platelet count of 80, sodium 119 and chloride 87. Creatinine was 1. Liver function tests were elevated and troponin was elevated at 0.102. Albumin was 3.2. Urinalysis was clear with blood small and protein 2+. Urine drug screen was positive for opiates, amphetamines and methamphetamines. Influenza testing was negative. He underwent a chest x-ray that showed no acute cardio pulmonary disease. Lumbar spine CAT scan showed spondylolisthesis. No acute bony abnormality. No focal bone destruction to suggest osteomyelitis. There was mild subsegmental atelectasis at the lung bases. On 01/02/2018 patient is feeling slightly better. His symptoms of yesterday of some nausea and sweating and jitteriness are improved today. He is denying nausea or emesis today is unable to eat his meals looks forward to taking a shower. Nursing staff have related there is some concern that the patient's significant other may have brought him in contraband medication. January 03 2018 patient has had his transesophageal echocardiogram. No reveals evidence of no endocarditis. Patient is starting to have some improvement of his fevers, T-max has decreased to 100.6 today. Patient is starting to inquire when the be well enough to go home. Objective - Vital Signs Vital signs: Vital Signs Temp 99.2 F 01/03/18 15:22 Pulse 83 01/03/18 12:00 Resp 16 01/03/18 17:30 BP 105/60 01/03/18 17:30 Pulse Ox 83 L 01/03/18 17:30 Intake & Output 01/03/18 01/03/18 01/04/18 06:59 18:59 06:59 Intake Total 400 425 Balance 400 425 Weight 67.9 kg Intake: IV 300 Intake, IV Titration 400 125 Amount Lactated Ringers 1,000 ml 150 @ 75 mls/hr IV .[id number] [facility] Rx#:[id number] Vancomycin 1,250 mg In 250 Sodium Chloride 0.9% 250 ml @ 125 mls/hr IVPB Q12H [facility] Rx#:[id number] Vancomycin 1,250 mg In 125 Sodium Chloride 0.9% 250 ml @ 125 mls/hr IVPB Q8H [facility] Rx#:[id number] Other: Voiding Method Toilet Toilet Urinal Urinal # Voids 2 1 - Exam Gen: This is a thin 32-year-old male. Now much more comfortable no longer wincing in pain and reports no difficulties with a DARIUS HEENT: Head is atraumatic, normocephalic. Pupils equal, round. Sclerae is anicteric. Conjunctiva pink. NECK: Supple. No JVD. No lymphadenopathy. No thyromegaly. LUNGS: Clear to auscultation. No wheezes or rhonchi. No intercostal retractions. HEART: Regular rate and rhythm. Soft 2/6 systolic murmur left sternal border without radiation. ABDOMEN: Soft. Bowel sounds are present. No masses. No tenderness. EXTREMITIES: No pedal edema. No calf tenderness. 1+ dorsalis pedis palpable bilaterally NEUROLOGICAL: Patient is awake, alert and oriented x3. As noted the skin and is highly tattooed, no new tattoos or open skin lesions are seen evidence of any dana phlebitis is noted at this time. - Labs CBC & Chem 7: 01/02/18 06:36 01/03/18 05:41 Labs: Abnormal Lab Results - Last 24 Hours (Table) 01/03/18 Range/Units 05:41 Sodium 130 L (137-145) mmol/L Glucose 100 H (74-99) mg/dL Calcium 7.4 L (8.4-10.2) mg/dL Microbiology - Last 24 Hours (Table) 12/31/17 22:05 Blood Culture Gram Stain - Final Blood Blood Culture - Final Methicillin resist S. aureus Laboratory Results WBC 11.8 k/uL (3.8-10.6) H 01/02/18 06:36 RBC 4.20 m/uL (4.30-5.90) L 01/02/18 06:36 Hgb 13.0 gm/dL (13.0-17.5) 01/02/18 06:36 Hct 37.9 % (39.0-53.0) L 01/02/18 06:36 MCV 90.2 fL (80.0-100.0) 01/02/18 06:36 MCH 31.0 pg (25.0-35.0) 01/02/18 06:36 MCHC 34.3 g/dL (31.0-37.0) 01/02/18 06:36 RDW 13.2 % (11.5-15.5) 01/02/18 06:36 Plt Count 71 k/uL (150-450) L 01/02/18 06:36 Neutrophils % 85 % 12/31/17 22:05 Neutrophils % (Manual) 78 % 01/02/18 06:36 Band Neutrophils % 9 % 01/02/18 06:36 Lymphocytes % 7 % 12/31/17 22:05 Lymphocytes % (Manual) 8 % 01/02/18 06:36 Monocytes % 5 % 12/31/17 22:05 Monocytes % (Manual) 5 % 01/02/18 06:36 Eosinophils % 1 % 12/31/17 22:05 Eosinophils % (Manual) 1 % 01/02/18 06:36 Basophils % 0 % 12/31/17 22:05 Neutrophils # 6.4 k/uL (1.3-7.7) 12/31/17 22:05 Neutrophils # (Manual) 10.20 k/uL (1.3-7.7) H 01/02/18 06:36 Lymphocytes # 0.6 k/uL (1.0-4.8) L 12/31/17 22:05 Lymphocytes # (Manual) 0.94 k/uL (1.0-4.8) L 01/02/18 06:36 Monocytes # 0.4 k/uL (0-1.0) 12/31/17 22:05 Monocytes # (Manual) 0.59 k/uL (0-1.0) 01/02/18 06:36 Eosinophils # 0.1 k/uL (0-0.7) 12/31/17 22:05 Eosinophils # (Manual) 0.12 k/uL (0-0.7) 01/02/18 06:36 Basophils # 0.0 k/uL (0-0.2) 12/31/17 22:05 Nucleated RBCs 0 /100 WBC (0-0) 01/02/18 06:36 Manual Slide Review Performed 01/02/18 06:36 PT 12.9 sec (9.0-12.0) H 12/31/17 22:05 INR 1.4 (<1.2) H 12/31/17 22:05 APTT 27.7 sec (22.0-30.0) 12/31/17 22:05 Sodium 130 mmol/L (137-145) L 01/03/18 05:41 Potassium 3.8 mmol/L (3.5-5.1) 01/03/18 05:41 Chloride 99 mmol/L (98-107) 01/03/18 05:41 Carbon Dioxide 26 mmol/L (22-30) 01/03/18 05:41 Anion Gap 5 mmol/L 01/03/18 05:41 BUN 11 mg/dL (9-20) 01/03/18 05:41 Creatinine 0.80 mg/dL (0.66-1.25) 01/03/18 05:41 Est GFR (MDRD) Af Amer >60 (>60 ml/min/1.73 sqM) 01/03/18 05:41 Est GFR (MDRD) Non-Af >60 (>60 ml/min/1.73 sqM) 01/03/18 05:41 Glucose 100 mg/dL (74-99) H 01/03/18 05:41 POC Glucose (mg/dL) 101 mg/dL (75-99) H 01/01/18 05:50 POC Glu Carriage Dogger ID Nubia Wilson 01/01/18 05:50 Plasma Lactic Acid Ki 1.1 mmol/L (0.7-2.0) 12/31/17 22:05 Calcium 7.4 mg/dL (8.4-10.2) L 01/03/18 05:41 Total Bilirubin 0.8 mg/dL (0.2-1.3) 01/02/18 06:36 AST 95 U/L (17-59) H 01/02/18 06:36 ALT 91 U/L (21-72) H 01/02/18 06:36 Alkaline Phosphatase 189 U/L (38-126) H 01/02/18 06:36 Ammonia 24 umol/L (<30) 01/02/18 07:07 Total Creatine Kinase 79 U/L (55-170) 01/01/18 12:50 CK-MB (CK-2) 0.4 ng/mL (0.0-2.4) 01/01/18 12:50 CK-MB (CK-2) Rel Index 0.5 01/01/18 12:50 Troponin I 0.091 ng/mL (0.000-0.034) H* 01/01/18 12:50 Total Protein 5.3 g/dL (6.3-8.2) L 01/02/18 06:36 Albumin 2.4 g/dL (3.5-5.0) L 01/02/18 06:36 Urine Color Yellow 12/31/17 22:00 Urine Appearance Clear (Clear) 12/31/17 22:00 Urine pH 6.0 (5.0-8.0) 12/31/17 22:00 Ur Specific [place] 1.016 (1.001-1.035) 12/31/17 22:00 Urine Protein 2+ (Negative) H 12/31/17 22:00 Urine Glucose (UA) Negative (Negative) 12/31/17 22:00 Urine Ketones Negative (Negative) 12/31/17 22:00 Urine Blood Small (Negative) H 12/31/17 22:00 Urine Nitrite Negative (Negative) 12/31/17 22:00 Urine Bilirubin Negative (Negative) 12/31/17 22:00 Urine Urobilinogen 3.0 mg/dL (<2.0) 12/31/17 22:00 Ur Leukocyte Esterase Negative (Negative) 12/31/17 22:00 Urine RBC 1 /hpf (0-5) 12/31/17 22:00 Urine WBC 6 /hpf (0-5) H 12/31/17 22:00 Ur Squamous Epith Cells <1 /hpf (0-4) 12/31/17 22:00 Vancomycin Trough 9.2 ug/mL 01/02/18 11:06 Urine Opiates Screen Detected (NotDetected) H 01/01/18 00:00 Ur Oxycodone Screen Not Detected (NotDetected) 01/01/18 00:00 Urine Methadone Screen Not Detected (NotDetected) 01/01/18 00:00 Ur Propoxyphene Screen Not Detected (NotDetected) 01/01/18 00:00 Ur Barbiturates Screen Not Detected (NotDetected) 01/01/18 00:00 U Tricyclic Antidepress Not Detected (NotDetected) 01/01/18 00:00 Ur Phencyclidine Scrn Not Detected (NotDetected) 01/01/18 00:00 Ur Amphetamines Screen Detected (NotDetected) H 01/01/18 00:00 U Methamphetamines Scrn Detected (NotDetected) H 01/01/18 00:00 U Benzodiazepines Scrn Not Detected (NotDetected) 01/01/18 00:00 Urine Cocaine Screen Not Detected (NotDetected) 01/01/18 00:00 U Marijuana (THC) Screen Not Detected (NotDetected) 01/01/18 00:00 Hepatitis A IgM Ab Non-Reactive (Non-Reactive) 01/01/18 00:00 Hep Bs Antigen Non-Reactive (Non-Reactive) 01/01/18 00:00 Hep B Core IgM Ab Non-Reactive (Non-Reactive) 01/01/18 00:00 Hep C IgG Ab Non-Reactive (Non-Reactive) 01/01/18 00:00 HIV-1 Antibody Non-Reactive (Non-Reactive) 01/01/18 12:50 HIV Ag/Ab Interpret (()) 01/01/18 12:50 HIV p24 Antibody Non-Reactive (Non-Reactive) 01/01/18 12:50 HIV-2 Antibody Non-Reactive (Non-Reactive) 01/01/18 12:50 HIV P24 Antigen Non-Reactive (Non-Reactive) 01/01/18 12:50 Influenza Type A RNA Not Detected (Not Detectd) 12/31/17 22:05 Influenza Type B (PCR) Not Detected (Not Detectd) 12/31/17 22:05 Microbiology 12/31/17 22:05 Blood Blood Culture Gram Stain - Final 12/31/17 22:05 Blood Blood Culture - Final Methicillin resist S. aureus 12/31/17 22:00 Urine,Voided Urine Culture - Final 12/31/17 22:05 Blood Blood Culture - Final Assessment and Plan (1) Sepsis Current Visit: Yes Status: Acute Code(s): A41.9 - SEPSIS, UNSPECIFIED ORGANISM SNOMED Code(s): 24243195 (2) MRSA bacteremia Narrative/Plan: 32-year-old male presented hospital was to be in fever and feeling very ill is found to have evidence of bacteremia now likely with MRSA. As noted has a history of active heroin as well as other drug abuse is injection in nature. The patient has been seen by cardiology and DARIUS is planned. Overall goal is to further evaluate underlying endocarditis which appears to be likely at this time. Antibiotic therapy continues with vancomycin and Rocephin given the fact that his fever is improved and he clinically is improving. The patient does not voice any desire to go into a rehab program at discharge. He will not be a candidate for outpatient intravenous antibiotic therapy. We' ll have to work with the insurance to see if he is a candidate for Zyvox if that is a possibility. Repeat blood cultures are requested to ensure that he is having clearance of his bacteremia. Today blood cultures however are positive in further have been requested. Fortunately his HIV as well as hepatitis A, B, and C testing is all negative. Patient today although somewhat sedated is wondering when he is a be able to go home. We discussed he still has positive blood cultures. He has not cleared his bacteremia as of yet. But is starting to have some improvement of his symptoms. Because MRSA was isolated in his Vanco CARLENE was 2 vancomycin was transitioned to daptomycin. Since this action it appears that his temperature is improving and hopefully will not have clearance of his bacteremia. As noted we have asked for Zyvox at the pharmacy and they should let us know if this is a possibility at the time of his discharge. Current Visit: Yes Status: Acute Code(s): R78.81 - BACTEREMIA SNOMED Code( s): 71129020179634504 (3) Endocarditis Current Visit: Yes Status: Acute Code(s): I38 - ENDOCARDITIS, VALVE UNSPECIFIED SNOMED Code(s): 40687482 (4) Leukocytosis Current Visit: Yes Status: Acute Code(s): D72.829 - ELEVATED WHITE BLOOD CELL COUNT, UNSPECIFIED SNOMED Code(s): 467103671
--- NOTE | 2018-01-03 23:19 | PN ---
PROGRESS NOTE DATE OF SERVICE: 01/03/2018. ATTENDING NOTE: The patient seen and examined by me. I discussed with my nurse practitioner, Ms. Pan. This is a patient who presents with sepsis, positive blood cultures growing MRSA. The patient does IV heroin. Patient's blood cultures are positive from 12/31. Also blood cultures from 01/03 this morning are already growing MRSA. The patient is on IV daptomycin. For withdrawal symptoms, he was on Valium. He has been rather lethargic and the dose of Valium is going to be dropped down and then it can be discontinued in next 24 hours. The patient is in his room with his girlfriend, another gentleman wearing a hoodie . EXAMINATION: Temperature 100.6, pulse 53, respirations 16, blood pressure 105/58, pulse ox 95 on room air. Lying in bed, tired-appearing. LUNGS: Decreased breath sounds. CARDIOVASCULAR: First and second sounds normal. White count 11.8. ASSESSMENT: 1. Sepsis with blood cultures positive for methicillin-resistant Staphylococcus aureus with repeat blood cultures from today coming back again showing methicillin- resistant Staphylococcus aureus. Transesophageal echocardiogram now come back to be negative. 2. Chronic IV heroin and methamphetamine use. 3. Chronic low back pain, spondylolisthesis. 4. Chronic nicotine dependence. Patient is a cigarette smoker. 5. Acute bronchitis. 6. Heroin withdrawal, much improved. 7. Severe hyponatremia, likely hypoosmolar, improving. Sodium is up to 130. 8. Persistent thrombocytopenia. PLAN: At this point will continue with IV daptomycin. Keep the patient on IV fluids. CT scan lumbar spine was already done and that showed spondylosis. Sending the patient home on IV antibiotics is not really an option, given his IV heroin use. Dr. Keene is looking at getting Zyvox. MMODL / IJN: [id number] /
[2018-01-04] MEDS ORDERED: VANCOMYCIN TROUGH DUE 1 EACH MISC MISCELLANE ONE (04:00)
[2018-01-04 04:35] LABS: Anion Gap 6 mmol/L; Blood Urea Nitrogen 11 mg/dL (9-20); Calcium 7.6 mg/dL (8.4-10.2); Carbon Dioxide 27 mmol/L (22-30); Chloride 98 mmol/L (98-107); Glucose 100 mg/dL (74-99); Sodium 131 mmol/L (137-145)
[2018-01-04] MEDS: KETOROLAC 30 MG/ML 1 ML VIAL IVP SCH ×4 (06:33→23:07)
[2018-01-04] MEDS: DIAZEPAM 5 MG TAB PO SCH ×3 (09:01→23:07)
[2018-01-04] MEDS: CALCIUM CARBONATE LIQUID 500 MG/5 ML CUP PO SCH ×3 (09:01→17:36)
[2018-01-04] MEDS: DAPTOmycin 500 MG in SODIUM CHLORIDE 0.9% 50 ML IV SCH (12:54)
[2018-01-04] MEDS: LACTATED RINGERS 1,000 ML IV SCH ×2 (12:55→23:07)
[2018-01-04] MEDS: NICOTINE 14MG/24HR PATCH TRANSDERM SCH (12:55)
[2018-01-04] MEDS: cefTRIAXone IN SWFI 1,000 MG/10 ML SYRINGE IVP SCH ×2 (14:35→23:07)
--- NOTE | 2018-01-04 17:56 | PN ---
PROGRESS NOTE DATE OF SERVICE: 01/04/2018 Patient is being followed up for Dr. Pagan. The patient resting comfortably in bed, wants to know when he could be discharged. The patient states that he has a lot of personal chores that needs to be completed and if he is not discharged today he is going to lose his apartment and his custody of his child. Positive repeat blood culture status discussed with the patient. He claims that he is willing to go AMA and demanding that oral antibiotics be prescribed for him. His vital signs temperature 98.2, pulse 55, respirations 16, blood pressure 119/ 59, O2 saturation 95%. GENERAL: He is awake, alert, oriented x3. He is in no acute distress. HEENT: Atraumatic, normocephalic. Pupils equal and reactive to light. Extraocular movements are intact. Buccal mucosa is fair. NECK EXAMINATION: Neck is supple. No goiter, lymphadenopathy. JVD is negative. No carotid bruit heard. RESPIRATORY SYSTEM: Lungs are clear to auscultate. No rales, rhonchi, or wheezes. CARDIOVASCULAR: Heart is regular rate without any gallop rhythm. ABDOMEN/GI: Abdomen is soft, nontender. Bowel sounds positive. EXTREMITIES: No edema, clubbing or cyanosis. Pulses are palpable. NEUROLOGICAL: Patient is awake, alert, oriented x3. SKIN: Warm, dry and intact. LAB: CBC, white blood count of 11.8, hemoglobin 13.2, hematocrit 27.9, platelet count of 71. Chemical profile: Sodium 131, potassium 4.0, chloride 98, bicarb 27, BUN 11, creatinine 0.8. ASSESSMENT: 1. Sepsis with MRSA septicemia. The patient had repeat blood cultures done which are still positive for MRSA. The patient has been transitioned to IV daptomycin instead of vancomycin secondary to CARLENE of 2 with Vanco. The patient is responding well with daptomycin. 2. Chronic IV heroin and amphetamine use. The patient currently understands cessation. 3. Chronic low back pain and spondylolisthesis. 4. Chronic nicotine dependence. Cigarette smoker. Patient wears a nicotine patch and breathing treatments. 5. Acute bronchitis, currently improving. 6. Heroin withdrawal. The patient is clinically markedly improved. 7. Severe hyponatremia, possibly hypo osmolar. The patient's sodium was up to 131 today. 8. Thrombocytopenia. I had discussion with the patient. Again, the patient is demanding to either be given prescription for oral antibiotics. The patient's nurse has endorsed to have the nursing paper supervisor come and talk to the patient. MMURBAN / PHI: [id number] / MTDD
[2018-01-05] MEDS: KETOROLAC 30 MG/ML 1 ML VIAL IVP SCH (05:38)
[2018-01-05 06:45] VITALS: BP 120/59; PULSE 77; RESP 17; TEMP 97.4
[2018-01-05] MEDS: CALCIUM CARBONATE LIQUID 500 MG/5 ML CUP PO SCH (06:47)
[2018-01-05 06:49] LABS: Basophils % (A) 0 %; Eosinophils # (A) 0.1 k/uL (0-0.7); Eosinophils % (A) 1 %; HGB 10.6 gm/dL (13.0-17.5); Lymphocytes # (A) 1.8 k/uL (1.0-4.8); Lymphocytes % (A) 19 %; MCH 30.1 pg (25.0-35.0); MCHC 32.1 g/dL (31.0-37.0); MCV 93.8 fL (80.0-100.0); Mean Platelet Volume 7.4; Monocytes # (A) 0.6 k/uL (0-1.0); Monocytes % (A) 7 %; Neutrophils # (A) 6.4 k/uL (1.3-7.7); Neutrophils % (A) 69 %; RBC 3.52 m/uL (4.30-5.90); RDW 13.4 % (11.5-15.5); WBC 9.2 k/uL (3.8-10.6)
[2018-01-05 06:57] LABS: Anion Gap 6 mmol/L; Blood Urea Nitrogen 8 mg/dL (9-20); Calcium 7.7 mg/dL (8.4-10.2); Carbon Dioxide 27 mmol/L (22-30); Chloride 101 mmol/L (98-107); Glucose 119 mg/dL (74-99); Potassium 4.2 mmol/L (3.5-5.1); Sodium 134 mmol/L (137-145)
[2018-01-05 06:58] LABS: Platelet Count 303 k/uL (150-450)
--- NOTE | 2018-02-03 10:07 | DS ---
DISCHARGE SUMMARY DATE OF ADMISSION: 01/01/2018. DATE OF DISCHARGE: 01/05/2018 Patient left AMA. ADMISSION DIAGNOSES: Admission diagnoses on the patient was sepsis in the setting of IV drug abuse, possible endocarditis, probable hepatitis, chronic IV heroin and methamphetamine use, chronic low back pain, chronic nicotine dependence, acute bronchitis. BRIEF HISTORY ON THIS PATIENT: This was a 32-year-old male patient with history of IV drug abuse for past 10 years. Lives with his girlfriend, actually came in because of abscess of the right arm that was treated earlier at [facility]. The patient also had overdosed a few years ago and was in a coma for about a week. The patient claims despite treatment he remained afebrile with abnormal labs. He decided to come back to the ER. His chest x-ray was negative. He claims that he felt very very sick so he decided to come to ED. PAST MEDICAL HISTORY: Significant for IV drug abuse, chronic back pain, chronic heroin use. HOME MEDICATIONS: The patient takes Xanax 0.5 mg b.i.d. BRIEF HOSPITAL COURSE: The patient was admitted to general medical floor, was started on Valium for possible withdrawal with small dose of beta blockers. ID consultation was done. Cardiology was consulted. The patient was started on IV vancomycin and ceftriaxone. Hepatitis profile and HIV testing was sent from ED. The patient was given IV fluid boluses while in the hospital. The patient's blood cultures came back positive for MRSA. Differential diagnosis was endocarditis. He was recommended a DARIUS. Heroin withdrawal was treated with Valium. The patient slowly improved. Valium and beta blockers were finally discontinued. Patient was continued on vancomycin and ceftriaxone. The patient had a DARIUS done. Infectious Disease recommended possibly Zyvox upon discharge. While in the hospital, the patient continued to demand discharge and demanded to be started on oral antibiotics and be sent home. The patient claims that he had to go home, otherwise, he would lose his apartment and the custody of his child. The patient was explained the situation of infection disease waiting for blood cultures that were still positive and the patient would need final antibiotic adjustment. The patient's IV antibiotics had been transitioned to IV daptomycin. The patient had been responding to but needed negative blood cultures before being released on IV or oral antibiotics. Despite numerous discussions, the patient refused to stay in the in the hospital and finally signed himself out AGAINST MEDICAL ADVICE on 01/05/2018. MMKELLIL / IJN: [id number] /
== END 2018-01-05 09:43 | disposition left against medical advice (07) | DRG 872 ==
LOC: EC 21:32 → 6SEL 01-01 00:35 → UNDODISIN 01-05 09:38
PROVIDERS: ADMIT Hospitalist; ATTEND Hospitalist
PROC: B24BZZ4 Ultrasonography of Heart with Aorta, Transesophageal (ICD-10-PCS; principal; 2018-01-03 14:00)
DX: A41.02 Sepsis due to Methicillin resistant Staphylococcus aureus (principal); D69.6 Thrombocytopenia, unspecified; E87.8 Other disorders of electrolyte and fluid balance, not elsewhere classified; E87.1 Hypo-osmolality and hyponatremia; F11.23 Opioid dependence with withdrawal; J98.11 Atelectasis; F17.210 Nicotine dependence, cigarettes, uncomplicated; G89.29 Other chronic pain; J20.9 Acute bronchitis, unspecified; K75.9 Inflammatory liver disease, unspecified; M43.16 Spondylolisthesis, lumbar region; F15.10 Other stimulant abuse, uncomplicated; R07.89 Other chest pain; R74.8 Abnormal levels of other serum enzymes
CPT/HCPCS: 36415; 71046; 72132; 76705; 80048; 80053; 80074; 80202; 80306; 81001; 82140; 82550; 82553; 83605; 84484; 85025; 85610; 85730; 87040; 87077; 87086; 87186; 87390; 87502; 93005; 93306; 93312; 93320; 93325; 96361; 96365; 96366; 96375; 99291

== ENCOUNTER 2018-01-14 11:41 | Inpatient (IN) | payer OTHER ==
[2018-01-14 13:42] LABS: Basophils # (A) 0.1 k/uL (0-0.2); Basophils % (A) 1 %; Eosinophils # (A) 0.1 k/uL (0-0.7); Eosinophils % (A) 1 %; HCT 32.2 % (39.0-53.0); HGB 10.4 gm/dL (13.0-17.5); Lymphocytes # (A) 2.6 k/uL (1.0-4.8); Lymphocytes % (A) 38 %; MCH 29.7 pg (25.0-35.0); MCHC 32.4 g/dL (31.0-37.0); MCV 91.7 fL (80.0-100.0); Mean Platelet Volume 6.9; Monocytes # (A) 0.4 k/uL (0-1.0); Monocytes % (A) 6 %; Neutrophils # (A) 3.6 k/uL (1.3-7.7); Neutrophils % (A) 52 %; Platelet Count 444 k/uL (150-450); RBC 3.51 m/uL (4.30-5.90); RDW 13.3 % (11.5-15.5); WBC 6.9 k/uL (3.8-10.6)
--- NOTE | 2018-01-14 13:50 | XR ---
EXAMINATION TYPE: XR ankle complete LT DATE OF EXAM: 01/14/2018 COMPARISON: NONE HISTORY: Pain FINDINGS: Three views of the ankle demonstrate the ankle mortise to be intact and symmetric. The joint spaces are preserved. The osseous structures are intact. IMPRESSION: 1. No definite acute fracture or dislocation, if symptoms persist follow-up study in 7 to 10 days wou ld be suggested.
--- NOTE | 2018-01-14 13:51 | XR ---
EXAMINATION TYPE: XR chest 2V DATE OF EXAM: 01/14/2018 COMPARISON: 12/31/2017 HISTORY: Chest pain TECHNIQUE: Frontal and lateral views of the chest are obtained. FINDINGS: A new left upper lung opacity is seen in comparison to exam of 12/31/2017. Remainder the mario alberto ngs are clear. Cardiomediastinal silhouette is within normal limits. Osseous structures are intact wi th minimal multilevel degenerative changes of the thoracic spine. IMPRESSION: Newly unifocal left upper lobe airspace disease most compatible with pneumonia as this f inding was not present on the exam of 12/31/2017.
[2018-01-14 13:54] LABS: ALT 50 U/L (21-72); AST 50 U/L (17-59); Albumin 3.7 g/dL (3.5-5.0); Alkaline Phosphatase 97 U/L (38-126); Anion Gap 11 mmol/L; Blood Urea Nitrogen 24 mg/dL (9-20); Calcium 9.2 mg/dL (8.4-10.2); Carbon Dioxide 27 mmol/L (22-30); Chloride 96 mmol/L (98-107); Glucose 99 mg/dL (74-99); Potassium 4.6 mmol/L (3.5-5.1); Sodium 134 mmol/L (137-145); Total Bilirubin 0.6 mg/dL (0.2-1.3); Total Protein 8.5 g/dL (6.3-8.2)
[2018-01-14] MEDS ORDERED: KETOROLAC 30 MG/ML 1 ML VIAL IVP STA (14:08)
[2018-01-14] MEDS ORDERED: ACETAMINOPHEN TAB 500 MG TAB PO STA (14:08)
--- NOTE | 2018-01-14 14:28 | ED ---
General Adult HPI - General Chief complaint: Recheck/Abnormal Lab/Rx Stated complaint: Back pain Time Seen by Provider: 01/14/18 12:35 Source: patient, RN notes reviewed Mode of arrival: ambulatory Limitations: no limitations - History of Present Illness Initial comments: This a 32-year-old male presents emergency Department with chief complaint of possible blood infection. Patient states she was in the hospital less than 10 days ago and was admitted for sepsis, positive blood cultures or MRSA. Patient states he signed a AMA. Patient states he felt that is feeling better and states he had things to go take care of. Patient states is slowly feeling worse he states she's had fevers chills night sweats at home. He is a chronic IV drug user he does share needles. Patient had negative HIV, hepatitis testing. Patient states even had a DARIUS which was negative for endocarditis. Patient complains of back pain, left ankle pain generalized weakness and fatigue. - Related Data Home Medications Medication Instructions Recorded Confirmed Multivitamins, Thera [Multivitamin 1 tab PO DAILY 01/14/18 01/14/18 (formulary)] Allergies Allergy/AdvReac Type Severity Reaction Status Date / Time No Known Allergies Allergy Verified 01/14/18 12:55 Review of Systems ROS Statement: Those systems with pertinent positive or pertinent negative responses have been documented in the HPI. ROS Other: All systems not noted in ROS Statement are negative. Past Medical History Past Medical History: Pneumonia Additional Past Medical History / Comment(s): chronic back pain, pneumothorax, RECENT SEPSIS- MRSA History of Any Multi-Drug Resistant Organisms: MRSA Date of last positivie culture/infection: 12/31/17 MDRO Source:: BLOOD Past Surgical History: Hernia Repair Past Anesthesia/Blood Transfusion Reactions: No Reported Reaction Past Psychological History: No Psychological Hx Reported Smoking Status: Current every day smoker Past Alcohol Use History: None Reported Past Drug Use History: Heroin, IV Drug Use, Methamphetamine - Past Family History Mother History Unknown: Yes General Exam Limitations: no limitations General appearance: alert, in no apparent distress Head exam: Present: atraumatic, normocephalic, normal inspection Eye exam: Present: normal appearance, PERRL, EOMI. Absent: scleral icterus, conjunctival injection, periorbital swelling ENT exam: Present: normal exam, normal oropharynx, mucous membranes moist, TM's normal bilaterally, normal external ear exam Neck exam: Present: normal inspection, full ROM. Absent: tenderness, meningismus, lymphadenopathy Respiratory exam: Present: normal lung sounds bilaterally. Absent: respiratory distress, wheezes, rales, rhonchi, stridor Cardiovascular Exam: Present: regular rate, normal rhythm, normal heart sounds. Absent: systolic murmur, diastolic murmur, rubs, gallop, clicks GI/Abdominal exam: Present: soft, normal bowel sounds. Absent: distended, tenderness, guarding, rebound, rigid Extremities exam: Present: other (Left ankle there is tenderness the lateral portion there is no erythema, swelling pedal pulses are equal bilaterally) Neurological exam: Present: alert, oriented X3, CN II-XII intact Skin exam: Present: warm, dry, intact, normal color. Absent: rash Course Vital Signs 01/14/18 01/14/18 12:06 13:27 Temperature 99.2 F 100.5 F H Pulse Rate 97 91 Respiratory 18 18 Rate Blood Pressure 121/76 118/62 O2 Sat by Pulse 98 100 Oximetry Medical Decision Making - Medical Decision Making 32-year-old male present emergency department for fever concerns for blood infection. Patient had a recent hospitalization where he had positive blood cultures of MRSA. Patient does have pneumonia on chest x-ray today. Patient will be admitted for IV antibiotics of ankle and Zosyn as he had recent MRSA bacteremia - Lab Data Result diagrams: 01/14/18 13:30 01/14/18 13:30 Lab Results 01/14/18 01/14/18 01/14/18 Range/Units 13:30 13:30 13:30 WBC 6.9 (3.8-10.6) k/uL RBC 3.51 L (4.30-5.90) m/uL Hgb 10.4 L (13.0-17.5) gm/dL Hct 32.2 L (39.0-53.0) % MCV 91.7 (80.0-100.0) fL MCH 29.7 (25.0-35.0) pg MCHC 32.4 (31.0-37.0) g/dL RDW 13.3 (11.5-15.5) % Plt Count 444 (150-450) k/uL Neutrophils % 52 % Lymphocytes % 38 % Monocytes % 6 % Eosinophils % 1 % Basophils % 1 % Neutrophils # 3.6 (1.3-7.7) k/uL Lymphocytes # 2.6 (1.0-4.8) k/uL Monocytes # 0.4 (0-1.0) k/uL Eosinophils # 0.1 (0-0.7) k/uL Basophils # 0.1 (0-0.2) k/uL Sodium 134 L (137-145) mmol/L Potassium 4.6 (3.5-5.1) mmol/L Chloride 96 L (98-107) mmol/L Carbon Dioxide 27 (22-30) mmol/L Anion Gap 11 mmol/L BUN 24 H (9-20) mg/dL Creatinine 1.00 (0.66-1.25) mg/dL Est GFR (MDRD) Af Amer >60 (>60 ml/min/1.73 sqM) Est GFR (MDRD) Non-Af >60 (>60 ml/min/1.73 sqM) Glucose 99 (74-99) mg/dL Plasma Lactic Acid Ki 1.0 (0.7-2.0) mmol/L Calcium 9.2 (8.4-10.2) mg/dL Total Bilirubin 0.6 (0.2-1.3) mg/dL AST 50 (17-59) U/L ALT 50 (21-72) U/L Alkaline Phosphatase 97 (38-126) U/L Total Protein 8.5 H (6.3-8.2) g/dL Albumin 3.7 (3.5-5.0) g/dL Disposition Clinical Impression: Pneumonia, Leukocytosis, Back pain Disposition: ADMITTED IP TO THIS [facility] Condition: Stable Referrals: Shree Jones MD [Primary Care Provider] - 1-2 days Time of Disposition: 14:59
[2018-01-14] MEDS ORDERED: VANCOMYCIN IV PER PHARMACY 1 EACH MISC MISCELLANE PRN (14:58)
[2018-01-14] MEDS ORDERED: PIPERACILLIN-TAZOBACTAM 3.375 GM in DEXTROSE/WATER 1 50ML.BAG IVPB STA (14:58)
[2018-01-14] MEDS ORDERED: PNEUMONIA PROTOCOL UTILIZED 1 EACH MISC PO PRN (15:01)
[2018-01-14] MEDS ORDERED: VANCOMYCIN 1,250 MG in SODIUM CHLORIDE 0.9% 250 ML IVPB STA (15:13)
[2018-01-14 15:53] LABS: Appearance,Urine Clear (Clear); Bilirubin,Urine Negative (Negative); Blood,Urine Negative (Negative); Color,Urine Yellow; Glucose,Urine (UA) Negative (Negative); Ketones,Urine Negative (Negative); Leukocyte Esterase,Urine Negative (Negative); PH, Urine 5.5 (5.0-8.0); Protein,Urine Negative (Negative); Specific Gravity,Urine 1.013 (1.001-1.035); Urobilinogen,Urine <2.0 mg/dL (<2.0)
[2018-01-14 16:03] LABS: Cocaine Screen,Urine Detected (NotDetected); Opiate Screen,Urine Detected (NotDetected); Phencyclidine Screen,Urine Not Detected (NotDetected); Urn Cannabinoid Scrn Not Detected (NotDetected)
[2018-01-14 16:04] LABS: Amphetamine Screen,Urine Detected (NotDetected); Barbiturate Screen,Urine Not Detected (NotDetected); Benzodiazepines Screen,Urine Detected (NotDetected); Methadone Screen, Urine Not Detected (NotDetected); Oxycodone Screen, Urine Not Detected (NotDetected); Tricyclic Antidepressant,Urine Not Detected (NotDetected)
[2018-01-14 16:50] VITALS: BMI 21.7
[2018-01-14] MEDS ORDERED: NAPROXEN 250 MG TAB PO PRN (17:19)
[2018-01-14] MEDS ORDERED: ACETAMINOPHEN TAB 325 MG TAB PO PRN (17:20)
[2018-01-14] MEDS: VANCOMYCIN 1,250 MG in SODIUM CHLORIDE 0.9% 250 ML IVPB SCH (23:51)
[2018-01-15] MEDS: PIPERACILLIN-TAZOBACTAM 3.375 GM in DEXTROSE/WATER 1 50ML.BAG IVPB SCH ×3 (02:19→18:33)
[2018-01-15] MEDS: VANCOMYCIN 1,250 MG in SODIUM CHLORIDE 0.9% 250 ML IVPB SCH ×3 (08:09→23:42)
[2018-01-15 08:36] LABS: Anion Gap 9 mmol/L; Blood Urea Nitrogen 19 mg/dL (9-20); Calcium 8.6 mg/dL (8.4-10.2); Carbon Dioxide 26 mmol/L (22-30); Chloride 100 mmol/L (98-107); Glucose 88 mg/dL (74-99); Potassium 4.7 mmol/L (3.5-5.1); Sodium 135 mmol/L (137-145)
--- NOTE | 2018-01-15 08:39 | XR ---
EXAMINATION TYPE: XR chest 2V DATE OF EXAM: 01/15/2018 COMPARISON: Prior chest x-ray 01/14/2018 HISTORY: Pneumonia TECHNIQUE: Frontal and lateral views of the chest are obtained. FINDINGS: Increased density in the left upper lobe persists. No pneumothorax or pleural effusion. Ca rdiac mediastinal silhouette, pulmonary vascularity and ivania are stable. IMPRESSION: Findings compatible with patient's history of pneumonia, correlate. Follow-up to resolut ion.
--- NOTE | 2018-01-15 10:50 | P.CONS ---
History of Present Illness - Reason for Consult Consult date: 01/15/18 - History of Present Illness This is a 32-year-old male patient gives history of IV drug use for the past 10 years and last use 4-5 days ago. He states he has had an abscess in his right arm and treated at [facility] almost lost his arm at that time. He has also overdosed 8 years ago and was in a coma for 6-1/2 days was treated for pneumonia. Patient denies history of endocarditis. Patient was admitted on January 01 and was treated for bacteremia. He underwent a DARIUS that revealed no evidence of endocarditis. His fevers were improving but patient signed himself out AGAINST MEDICAL ADVICE. Patient return to [facility] emergency center yesterday due to feeling worse with fever, chills, night sweats. He also had back pain and left ankle pain which has resolved. He complains of generalized weakness and fatigue which are also improved. Patient was started on Zosyn and vancomycin and admitted to the [facility] floor. Urine drug screen was positive for opiates, amphetamines, methamphetamines, benzodiazepines and cocaine. Urinalysis was negative for infection. His white count was 6.9, creatinine 1.00 and temperature 100.5. Patient continues to actively use IV drugs. Patient is much more pleasant on this admission. He is stating that he would like to be discharged. Discussed the need for antibiotics to complete course of treatment. Most likely, patient will not be a candidate for IV antibiotics due to his drug use. Patient seems to understand this and is agreeable. Review of Systems All systems: negative Constitutional: Reports chills, Reports fatigue, Reports fever, Reports sweats, Reports weakness, Denies anorexia, Denies poor appetite, Denies weight loss Eyes: denies blurred vision, denies pain Ears, nose, mouth and throat: Denies headache, Denies sore throat Cardiovascular: Denies chest pain, Denies shortness of breath Respiratory: Denies cough Gastrointestinal: Denies abdominal pain, Denies diarrhea, Denies nausea, Denies vomiting Genitourinary: Denies dysuria Musculoskeletal: Denies frequent falls, Denies gait dysfunction, Denies myalgias Musculoskeletal: left: ankle pain (resolved) Integumentary: Denies pruritus, Denies rash Neurological: Denies numbness, Denies weakness Psychiatric: Denies anxiety, Denies depression Endocrine: Denies fatigue, Denies weight change Past Medical History Past Medical History: Pneumonia Additional Past Medical History / Comment(s): Chronic back pain, pneumothorax, RECENT SEPSIS- MRSA; Coma for 6 days per patient; IV drug overdoses x10; right arm abcess r/t IV drug abuse; Current drug abuse of crack cocaine, IV heroin, and methamphetamines (last use of IV heroin 01/14/2017) History of Any Multi-Drug Resistant Organisms: MRSA Year Discovered:: 12/31/17 MDRO Source:: BLOOD Past Surgical History: Hernia Repair Past Anesthesia/Blood Transfusion Reactions: No Reported Reaction Past Psychological History: ADD/ADHD, Depression Smoking Status: Current every day smoker Past Alcohol Use History: None Reported Additional Past Alcohol Use History / Comment(s): Patient is a smoker one pack per day for 20 years. Patient is actively using IV drugs. Past Drug Use History: Cocaine, Heroin, IV Drug Use, Methamphetamine - Past Family History Mother History Unknown: Yes Medications and Allergies Home Medications Medication Instructions Recorded Confirmed Type Multivitamins, Thera [Multivitamin 1 tab PO DAILY 01/14/18 01/14/18 History (formulary)] Allergies Allergy/AdvReac Type Severity Reaction Status Date / Time No Known Allergies Allergy Verified 01/14/18 12:55 Physical Exam Vitals: Vital Signs Temp Pulse Pulse Resp BP BP Pulse Ox 01/15/18 06:59 97.0 F L 82 16 125/56 100 01/14/18 23:00 98.1 F 68 14 120/59 97 01/14/18 16:29 98.7 F 79 20 110/66 98 01/14/18 15:31 98.5 F 89 18 163/70 100 01/14/18 13:27 100.5 F H 91 18 118/62 100 01/14/18 12:06 99.2 F 97 18 121/76 98 Intake and Output 01/14/18 01/15/18 01/15/18 22:59 06:59 14:59 Other: Voiding Method Toilet Toilet # Voids 1 2 Weight 63 kg Gen: This is a thin 32-year-old male. She is sitting up in bed and appears to be comfortable and in no acute distress. Breakfast trays at the bedside and patient consumed 100%. HEENT: Head is atraumatic, normocephalic. Pupils equal, round. Sclerae is anicteric. Conjunctiva pink. NECK: Supple. No JVD. No lymphadenopathy. No thyromegaly. LUNGS: Clear to auscultation. No wheezes or rhonchi. No intercostal retractions. HEART: Regular rate and rhythm. Soft 2/6 systolic murmur left sternal border without radiation. ABDOMEN: Soft. Bowel sounds are present. No masses. No tenderness. EXTREMITIES: No pedal edema. No calf tenderness. 1+ dorsalis pedis palpable bilaterally. No edema or swelling to the left ankle. She does not use his feet for injections. NEUROLOGICAL: Patient is awake, alert and oriented x3. Results Results: Laboratory Results WBC 6.9 k/uL (3.8-10.6) 01/14/18 13:30 RBC 3.51 m/uL (4.30-5.90) L 01/14/18 13:30 Hgb 10.4 gm/dL (13.0-17.5) L 01/14/18 13:30 Hct 32.2 % (39.0-53.0) L 01/14/18 13:30 MCV 91.7 fL (80.0-100.0) 01/14/18 13:30 MCH 29.7 pg (25.0-35.0) 01/14/18 13:30 MCHC 32.4 g/dL (31.0-37.0) 01/14/18 13:30 RDW 13.3 % (11.5-15.5) 01/14/18 13:30 Plt Count 444 k/uL (150-450) 01/14/18 13:30 Neutrophils % 52 % 01/14/18 13:30 Lymphocytes % 38 % 01/14/18 13:30 Monocytes % 6 % 01/14/18 13:30 Eosinophils % 1 % 01/14/18 13:30 Basophils % 1 % 01/14/18 13:30 Neutrophils # 3.6 k/uL (1.3-7.7) 01/14/18 13:30 Lymphocytes # 2.6 k/uL (1.0-4.8) 01/14/18 13:30 Monocytes # 0.4 k/uL (0-1.0) 01/14/18 13:30 Eosinophils # 0.1 k/uL (0-0.7) 01/14/18 13:30 Basophils # 0.1 k/uL (0-0.2) 01/14/18 13:30 Sodium 135 mmol/L (137-145) L 01/15/18 07:46 Potassium 4.7 mmol/L (3.5-5.1) 01/15/18 07:46 Chloride 100 mmol/L (98-107) 01/15/18 07:46 Carbon Dioxide 26 mmol/L (22-30) 01/15/18 07:46 Anion Gap 9 mmol/L 01/15/18 07:46 BUN 19 mg/dL (9-20) 01/15/18 07:46 Creatinine 0.95 mg/dL (0.66-1.25) 01/15/18 07:46 Est GFR (MDRD) Af Amer >60 (>60 ml/min/1.73 sqM) 01/15/18 07:46 Est GFR (MDRD) Non-Af >60 (>60 ml/min/1.73 sqM) 01/15/18 07:46 Glucose 88 mg/dL (74-99) 01/15/18 07:46 Plasma Lactic Acid Ki 1.0 mmol/L (0.7-2.0) 01/14/18 13:30 Calcium 8.6 mg/dL (8.4-10.2) 01/15/18 07:46 Total Bilirubin 0.6 mg/dL (0.2-1.3) 01/14/18 13:30 AST 50 U/L (17-59) 01/14/18 13:30 ALT 50 U/L (21-72) 01/14/18 13:30 Alkaline Phosphatase 97 U/L (38-126) 01/14/18 13:30 Total Protein 8.5 g/dL (6.3-8.2) H 01/14/18 13:30 Albumin 3.7 g/dL (3.5-5.0) 01/14/18 13:30 Urine Color Yellow 01/14/18 15:30 Urine Appearance Clear (Clear) 01/14/18 15:30 Urine pH 5.5 (5.0-8.0) 01/14/18 15:30 Ur Specific [place] 1.013 (1.001-1.035) 01/14/18 15:30 Urine Protein Negative (Negative) 01/14/18 15:30 Urine Glucose (UA) Negative (Negative) 01/14/18 15:30 Urine Ketones Negative (Negative) 01/14/18 15:30 Urine Blood Negative (Negative) 01/14/18 15:30 Urine Nitrite Negative (Negative) 01/14/18 15:30 Urine Bilirubin Negative (Negative) 01/14/18 15:30 Urine Urobilinogen <2.0 mg/dL (<2.0) 01/14/18 15:30 Ur Leukocyte Esterase Negative (Negative) 01/14/18 15:30 Urine Opiates Screen Detected (NotDetected) H 01/14/18 15:30 Ur Oxycodone Screen Not Detected (NotDetected) 01/14/18 15:30 Urine Methadone Screen Not Detected (NotDetected) 01/14/18 15:30 Ur Propoxyphene Screen Not Detected (NotDetected) 01/14/18 15:30 Ur Barbiturates Screen Not Detected (NotDetected) 01/14/18 15:30 U Tricyclic Antidepress Not Detected (NotDetected) 01/14/18 15:30 Ur Phencyclidine Scrn Not Detected (NotDetected) 01/14/18 15:30 Ur Amphetamines Screen Detected (NotDetected) H 01/14/18 15:30 U Methamphetamines Scrn Detected (NotDetected) H 01/14/18 15:30 U Benzodiazepines Scrn Detected (NotDetected) H 01/14/18 15:30 Urine Cocaine Screen Detected (NotDetected) H 01/14/18 15:30 U Marijuana (THC) Screen Not Detected (NotDetected) 01/14/18 15:30 CBC & Chem 7: 01/14/18 13:30 01/15/18 07:46 Labs: Abnormal Lab Results - Last 24 Hours (Table) 01/14/18 01/14/18 01/14/18 Range/Units 13:30 13:30 15:30 RBC 3.51 L (4.30-5.90) m/uL Hgb 10.4 L (13.0-17.5) gm/dL Hct 32.2 L (39.0-53.0) % Sodium 134 L (137-145) mmol/L Chloride 96 L (98-107) mmol/L BUN 24 H (9-20) mg/dL Total Protein 8.5 H (6.3-8.2) g/dL Urine Opiates Screen Detected H (NotDetected) Ur Amphetamines Screen Detected H (NotDetected) U Methamphetamines Scrn Detected H (NotDetected) U Benzodiazepines Scrn Detected H (NotDetected) Urine Cocaine Screen Detected H (NotDetected) 01/15/18 Range/Units 07:46 RBC (4.30-5.90) m/uL Hgb (13.0-17.5) gm/dL Hct (39.0-53.0) % Sodium 135 L (137-145) mmol/L Chloride (98-107) mmol/L BUN (9-20) mg/dL Total Protein (6.3-8.2) g/dL Urine Opiates Screen (NotDetected) Ur Amphetamines Screen (NotDetected) U Methamphetamines Scrn (NotDetected) U Benzodiazepines Scrn (NotDetected) Urine Cocaine Screen (NotDetected) Microbiology - Last 24 Hours (Table) 01/14/18 15:30 Urine Culture - Preliminary Urine,Voided Assessment and Plan Plan: This is a 32-year-old male patient who was recently seen for MRSA bacteremia with history of active heroin and other drug abuse by injection. His DARIUS was negative for vegetation. He is currently on vancomycin and Zosyn. Plan was for possible Zyvox as an outpatient orally but it appears that this was not completed as patient signed himself out AMA.. We will have case management follow-up. On his last admission, patient underwent HIV and hepatitis virus panel which was all negative. Continue supportive care. Further recommendations as patient progresses. The above dictated assessment and findings were discussed with Dr. Keene. The impression and plan of care have been directed as dictated. Antonietta Duran nurse practitioner acting as scribe for Dr. Keene.
[2018-01-15] MEDS: ENOXAPARIN 40 MG/0.4 ML SYRINGE SQ SCH (18:33)
--- NOTE | 2018-01-15 18:51 | HP ---
HISTORY AND PHYSICAL DATE OF ADMISSION: January 14, 2018. DATE OF SERVICE: January 14, 2018. PRESENT COMPLAINT: Not feeling well. HISTORY OF PRESENTING COMPLAINT: This patient was seen examined by me yesterday on January 14, 2018. I did an H and P which could not be found. I am doing a repeat 2nd H and P for yesterday. This is a 32-year-old patient who has been doing IV drugs for quite some time and the last IV heroin was the day before he came in. The patient has had abscess in the right arm that was treated at [facility] and there is also overdose on medications. The patient has recently in the hospital here and treated for pneumonia. I did have a DARIUS that was negative for endocarditis. The patient signed himself out against medical advice. The patient now presents with not feeling well. Decreased appetite. Tired, fever, chills. The patient also had some chronic back pain, was started on antibiotics in the ER. The patient continues to do multiple drugs it seems. When I saw the patient last night the patient had actually eaten his supper. REVIEW OF SYSTEMS: Constitutional: Weak and tired. Fevers. HEENT: None. Respiratory: Cough, some sputum, color not known. Cardiovascular none. Gastrointestinal none. Genitourinary: None. Musculoskeletal: Back pain. Dermatological tattoos. Hematological none. Lymphatics none. Psychiatry very anxious. Neurological none. PAST MEDICAL HISTORY: Of chronic back pain, pneumothorax, IV drug abuse with overdose. PAST SURGICAL HISTORY: Hernia repair. SOCIAL HISTORY: The patient does not work. Smokes about a pack a day. Lives girlfriend, actually who works and supplies the money for his drugs. The patient does IV heroin at least about 60 dollars a day. Also does amphetamines, cocaine. FAMILY HISTORY: Patient cannot remember. HOME MEDICATIONS: Xanax p.r.n. ALLERGIES: None. PHYSICAL EXAMINATION: On examination: Temperature 100.5, pulse 91, respiratory 18, blood pressure 118/62, pulse ox 100% on room air. General appearance: Sitting on bed, tired-appearing, lethargic, but answers questions. Then dozes off. Eyes: Pupils equal. Conjunctivae normal. HEENT: External appearance of nose and ears normal. Oral cavity normal. Ears are pierced. Neck JVD not raised. Mass not palpable. Respiratory effort normal. Lungs are clear. Cardiovascular 1st and second sounds normal. No edema. ABDOMEN: Soft, nontender. Liver and spleen not palpable. Lymphatic: No lymph nodes palpable in neck or axillae. Psychiatry: Lethargic but arousable, does answer questions. Dermatological: Multiple tattoos. INVESTIGATIONS: White count 6.9, hemoglobin 10.4, potassium 4.6, BUN 24, creatinine 1.0. Urine drug screen positive for opiates and amphetamines, methamphetamines, benzodiazepine, cocaine. Chest x-ray shows infiltrate in the left upper lobe. ASSESSMENT: 1. Left upper lobe pneumonia, possible aspiration. 2. Metabolic encephalopathy from IV heroin use. 3. Chronic heroin use and dependence. 4. Multiple substance abuse use. 5. Chronic nicotine dependence. PLAN: Patient is started on IV Zosyn, vancomycin. I did inform the patient that he will not get any IV pain medications as it is not indicated, the patient is to be given naproxen. Infectious Disease was consulted. Follow. MMODL / IJN: [id number] /
--- NOTE | 2018-01-15 19:21 | PN ---
PROGRESS NOTE DATE OF SERVICE: 01/15/2018 PRESENTING COMPLAINT: Tired. INTERVAL HISTORY: This is a patient who is an IV drug abuser and uses other recreational drugs, presented with pneumonia, not feeling well. The patient has been walking about the room. I was informed that the patient's girlfriend was here who was intoxicated and had to be lead off the floor. The patient's room does smell of smoking. The patient is rather perky and cheerful today. REVIEW OF SYSTEMS: Done for constitutional, cardiovascular, GI, pulmonary; relevant findings as above. CURRENT MEDICATIONS: Reviewed that include IV Zosyn and vancomycin. PHYSICAL EXAMINATION: Afebrile pulse 82, respirations 16, blood pressure 125/56, pulse ox 100% on room. GENERAL APPEARANCE: Comfortable, more awake. EYES: Pupils equal. Conjunctivae normal. HEENT: External appearance of nose and ears normal. Oral cavity normal. NECK: JVD not raised. Mass not palpable. Respiratory effort normal. LUNGS: Fair entry. CARDIOVASCULAR: 1st and 2nd sounds normal. No edema. ABDOMEN: Soft, nontender. Liver and spleen not palpable. PSYCHIATRY: Alert and oriented times three. Mood and affect normal. INVESTIGATIONS: Potassium 4.7. Cultures from this admission are negative until now. ASSESSMENT: 1. Left lower lobe pneumonia, suspect possible aspiration pneumonia. 2. Chronic IV heroin use, methamphetamine use, and other recreational drug use. 3. Chronic low back pain, probably from spondylolisthesis. 4. Chronic nicotine dependence, patient is a cigarette smoker. PLAN: At this point, continue with IV antibiotics. Await culture results. Care was discussed with the patient. MMODL / IJN: [id number] /
--- NOTE | 2018-01-15 23:07 | P.CON ---
Consult Note - . Consult date: 01/15/18 Assessment/Plan:: This is a 32-year-old male patient gives history of IV drug use for the past 10 years and last use 4-5 days ago. He states he has had an abscess in his right arm and treated at [facility] almost lost his arm at that time. He has also overdosed 8 years ago and was in a coma for 6-1/2 days was treated for pneumonia. Patient denies history of endocarditis. Patient was admitted on January 01 and was treated for bacteremia. He underwent a DARIUS that revealed no evidence of endocarditis. His fevers were improving but patient signed himself out AGAINST MEDICAL ADVICE. Patient return to [facility] emergency center yesterday due to feeling worse with fever, chills, night sweats. He also had back pain and left ankle pain which has resolved. He complains of generalized weakness and fatigue which are also improved. Patient was started on Zosyn and vancomycin and admitted to the [facility] floor. Urine drug screen was positive for opiates, amphetamines, methamphetamines, benzodiazepines and cocaine. Urinalysis was negative for infection. His white count was 6.9, creatinine 1.00 and temperature 100.5. Patient continues to actively use IV drugs. Patient is much more pleasant on this admission. He is stating that he would like to be discharged. Discussed the need for antibiotics to complete course of treatment. Most likely, patient will not be a candidate for IV antibiotics due to his drug use. Patient seems to understand this and is agreeable. Please see the consult note is dictated by nurse practitioner Mrs. Antonietta Duran. As noted patient is known to the service he however did leave [place] without antibiotic therapy. He was wondering why he wasn't given antibiotics. We discussed that this is the usual protocol when the patient leaves the hospital and AGAINST MEDICAL ADVICE that they are not provided with medications. The patient does have a history of the MRSA bacteremia and sepsis and ideally would be treated for 4 weeks of antibiotic therapy given his significant bacteremia and illness at admission. The patient relates at home off of antibiotic therapy is now considerably worse. His symptoms have started to recur with low- grade fevers and malaise and some body aches. Now he is back in hospital he is feeling quite excellent again. He did come in with poly-substance abuse again. There is a visitor in the room relates that she is his sponsor mom, and they' re going to try to get him into rehab at the time of discharge for his polysubstance abuse. The patient did have positive blood cultures from December 31 through January 03 during his last stay with the first negative blood culture of January 04. The blood culture last night is negative still but it is quite early in its course. We will work with the discharge team see if we can have Zyvox covered at 600 mg twice a day orally since he is not a candidate for outpatient intravenous antibiotic therapy. Fortunately he is not having any significant worsening of his status such as renal failure or new skin lesions. Hopefully he will be able to stay through this hospital course until we have the opportunity to have arrangements for appropriate outpatient antibiotic therapy. I agree with evaluation, assessment and plan is dictated by nurse practitioner Mrs. Antonietta Duran.
[2018-01-16] MEDS: PIPERACILLIN-TAZOBACTAM 3.375 GM in DEXTROSE/WATER 1 50ML.BAG IVPB SCH ×2 (01:09→10:32)
[2018-01-16 01:19] VITALS: RESP 18
[2018-01-16 06:36] LABS: Basophils # (A) 0.1 k/uL (0-0.2); Basophils % (A) 1 %; Eosinophils # (A) 0.1 k/uL (0-0.7); Eosinophils % (A) 1 %; HCT 36.9 % (39.0-53.0); HGB 11.7 gm/dL (13.0-17.5); Hypochromasia Slight; Lymphocytes # (A) 1.7 k/uL (1.0-4.8); Lymphocytes % (A) 31 %; MCH 29.8 pg (25.0-35.0); MCHC 31.6 g/dL (31.0-37.0); MCV 94.4 fL (80.0-100.0); Mean Platelet Volume 6.7; Monocytes # (A) 0.3 k/uL (0-1.0); Monocytes % (A) 6 %; Neutrophils # (A) 3.2 k/uL (1.3-7.7); Neutrophils % (A) 58 %; Platelet Count 386 k/uL (150-450); RBC 3.91 m/uL (4.30-5.90); RDW 13.4 % (11.5-15.5); WBC 5.5 k/uL (3.8-10.6)
[2018-01-16 06:55] LABS: ALT 47 U/L (21-72); AST 47 U/L (17-59); Alkaline Phosphatase 81 U/L (38-126); Anion Gap 9 mmol/L; Blood Urea Nitrogen 17 mg/dL (9-20); Carbon Dioxide 24 mmol/L (22-30); Chloride 105 mmol/L (98-107); Glucose 98 mg/dL (74-99); Potassium 4.6 mmol/L (3.5-5.1); Sodium 138 mmol/L (137-145); Total Bilirubin 0.3 mg/dL (0.2-1.3); Total Protein 7.4 g/dL (6.3-8.2)
[2018-01-16] MEDS ORDERED: VANCOMYCIN TROUGH DUE 1 EACH MISC MISCELLANE ONE (07:00)
[2018-01-16 07:49] VITALS: BP 98/50; PULSE 83; TEMP 97.6
[2018-01-16] MEDS: ENOXAPARIN 40 MG/0.4 ML SYRINGE SQ SCH (09:12)
[2018-01-16] MEDS: VANCOMYCIN 1,250 MG in SODIUM CHLORIDE 0.9% 250 ML IVPB SCH (10:32)
[2018-01-16] MEDS ORDERED: VANCOMYCIN 1,000 MG in SODIUM CHLORIDE 0.9% 250 ML IVPB SCH (16:00)
--- NOTE | 2018-01-20 00:22 | DS ---
DISCHARGE SUMMARY DATE OF ADMISSION: 01/14/2018 DATE OF DISCHARGE: 01/16/2018 FINAL DIAGNOSES: 1. Left lower lobe pneumonia, suspect aspiration pneumonia, probably chemical pneumonitis. 2. Methicillin-resistant Staphylococcus aureus bacteremia from last admission. The patient left against medical advice. 3. Chronic intravenous heroin use, methamphetamine use and other recreational drug use. 4. Chronic low back pain, probably from spondylolisthesis. 5. Chronic nicotine dependence. The patient is a cigarette smoker. HOSPITAL COURSE: This is a patient who was in the hospital recently left against medical advice in spite of having positive blood cultures for MRSA readmitted, not feeling well, tired, had a fever up to 100.5. Had an element of what was felt to be aspiration pneumonitis. Given his last positive blood cultures, Dr. Keene prescribed to Zyvox which was covered. The patient has remained afebrile in the hospital. Doing much better, tolerating a diet, normal white count, up and about. The patient again was told against use of recreational drugs. On exam, lungs fair air entry. Psych: AO x3. The patient's blood cultures remain negative from 01/14/2018. DISCHARGE MEDICATIONS: 1. Multivitamin 1 tablet p.o. daily. 2. Zyvox 600 mg p.o. q.12, 28 tablets. 3. Naproxen 250 mg p.o. t.i.d. p.r.n. FOLLOWUP: 1. Follow up with Dr. Jones on , Dr. Keene 1-2 weeks. 2. Labs: BMP, CBC in 1 week. MMODL / IJN: [id number] /
== END 2018-01-16 14:14 | disposition home or self-care (01) | DRG 177 ==
LOC: EC 11:41 → 4MS4W 14:58
PROVIDERS: ADMIT Hospitalist; ATTEND Hospitalist
DX: J69.0 Pneumonitis due to inhalation of food and vomit (principal); G93.41 Metabolic encephalopathy; F11.20 Opioid dependence, uncomplicated; M43.10 Spondylolisthesis, site unspecified; F15.10 Other stimulant abuse, uncomplicated; F19.10 Other psychoactive substance abuse, uncomplicated; F17.210 Nicotine dependence, cigarettes, uncomplicated; F90.9 Attention-deficit hyperactivity disorder, unspecified type; G89.29 Other chronic pain; F32.9 Major depressive disorder, single episode, unspecified; Z79.899 Other long term (current) drug therapy; J68.0 Bronchitis and pneumonitis due to chemicals, gases, fumes and vapors; J15.6 Pneumonia due to other Gram-negative bacteria; B95.62 Methicillin resistant Staphylococcus aureus infection as the cause of diseases classified elsewhere
CPT/HCPCS: 36415; 71046; 80048; 80053; 80202; 80306; 81003; 83605; 85025; 87040; 87070; 87077; 87086; 87186; 87205; 96365; 96375; 99285

== ENCOUNTER 2018-08-13 10:41 | Emergency (ER) | payer OTHER ==
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
== END 2018-08-13 10:46 | disposition left against medical advice (07) ==
LOC: EC 10:41
DX: T40.1X1A Poisoning by heroin, accidental (unintentional), initial encounter (principal); F17.200 Nicotine dependence, unspecified, uncomplicated; Z86.14 Personal history of Methicillin resistant Staphylococcus aureus infection
CPT/HCPCS: 99284

== ENCOUNTER 2018-09-29 02:16 | Emergency (ER) | payer OTHER ==
[2018-09-29] MEDS ORDERED: SUCCINYLCHOLINE CHLORIDE VIAL 200 MG/10 ML VIAL IV STA ×2 (02:33→02:56)
[2018-09-29] MEDS ORDERED: ETOMIDATE 2 MG/ML 10 ML VIAL IVP STA ×2 (02:33→02:56)
[2018-09-29] MEDS ORDERED: SODIUM CHLORIDE 0.9% 1,000 ML IV ONE ×2 (02:35→04:09)
[2018-09-29] MEDS ORDERED: MIDAZOLAM 2 MG/2 ML VIAL IV STA (02:47)
[2018-09-29] MEDS ORDERED: MIDAZOLAM 1 MG/ML 5 ML VIAL IV STA ×3 (02:56→03:22)
[2018-09-29] MEDS ORDERED: PROPOFOL 1,000 MG in EMPTY BAG 1 BAG IV SCH (03:00)
[2018-09-29] MEDS ORDERED: PROPOFOL 1,000 MG in EMPTY BAG 1 BAG IV ONE (03:00)
[2018-09-29] MEDS: PROPOFOL 1,000 MG in EMPTY BAG 1 BAG IV NR ×2 (03:05→05:11)
--- NOTE | 2018-09-29 03:05 | XR ---
EXAMINATION TYPE: XR chest 1V portable DATE OF EXAM: 09/29/2018 COMPARISON: 01/15/2018 HISTORY: Overdose TECHNIQUE: Single frontal view of the chest is obtained. FINDINGS: There is pulmonary alveolar edema. Endotracheal tube is 8 cm from the jose miguel. Nasogastric tube is in good position. There is no pleural effusion. There is no pneumothorax. Heart size is mani l. IMPRESSION: Endotracheal tube is high and should be advanced 3 or 4 cm. There is severe pulmonary al veolar edema that is new compared to old exam.
--- NOTE | 2018-09-29 03:07 | XR ---
EXAMINATION TYPE: XR pelvis AP view DATE OF EXAM: 09/29/2018 COMPARISON: NONE HISTORY: Overdose. Pain. TECHNIQUE: Single view FINDINGS: Pelvic ring is intact. Proximal femurs and hip joints appear normal. Sacroiliac joints appe ar normal. IMPRESSION: Normal pelvis
[2018-09-29 03:20] LABS: Amorphous Sediment,Urine Rare /hpf; Appearance,Urine Cloudy (Clear); Bilirubin,Urine Negative (Negative); Blood,Urine Moderate (Negative); Color,Urine Yellow; Glucose,Urine (UA) 4+ (Negative); Hyaline Casts,Urine 15 /lpf (0-2); Ketones,Urine Negative (Negative); Leukocyte Esterase,Urine Negative (Negative); Mucus,Urine Rare /hpf; Nitrite,Urine Negative (Negative); Protein,Urine 2+ (Negative); RBC,Urine 8 /hpf (0-5); Specific Gravity,Urine 1.014 (1.001-1.035); Sperm,Urine Moderate /hpf; Urobilinogen,Urine <2.0 mg/dL (<2.0); WBC,Urine 9 /hpf (0-5)
[2018-09-29 03:25] LABS: Amphetamine Screen,Urine Detected (NotDetected); Barbiturate Screen,Urine Not Detected (NotDetected); Benzodiazepines Screen,Urine Not Detected (NotDetected); Cocaine Screen,Urine Not Detected (NotDetected); Methadone Screen, Urine Not Detected (NotDetected); Opiate Screen,Urine Detected (NotDetected); Oxycodone Screen, Urine Not Detected (NotDetected); Phencyclidine Screen,Urine Not Detected (NotDetected); Tricyclic Antidepressant,Urine Not Detected (NotDetected); Urn Cannabinoid Scrn Not Detected (NotDetected)
[2018-09-29 03:26] LABS: Glucose,Whole Blood 213 mg/dL (75-99)
[2018-09-29 03:48] LABS: ALT 58 U/L (21-72); AST 56 U/L (17-59); Albumin 3.4 g/dL (3.5-5.0); Alcohol <10 mg/dL; Alkaline Phosphatase 45 U/L (38-126); Anion Gap 9 mmol/L; Blood Urea Nitrogen 15 mg/dL (9-20); Calcium 8.2 mg/dL (8.4-10.2); Carbon Dioxide 20 mmol/L (22-30); Chloride 107 mmol/L (98-107); Glucose 226 mg/dL (74-99); Sodium 136 mmol/L (137-145); Total Bilirubin 0.7 mg/dL (0.2-1.3); Total Protein 6.5 g/dL (6.3-8.2)
[2018-09-29 03:56] LABS: HCT 49.8 % (39.0-53.0); HGB 15.9 gm/dL (13.0-17.5); MCH 31.4 pg (25.0-35.0); MCHC 31.9 g/dL (31.0-37.0); MCV 98.4 fL (80.0-100.0); Mean Platelet Volume 7.1; Platelet Count 218 k/uL (150-450); RBC 5.06 m/uL (4.30-5.90); RDW 14.6 % (11.5-15.5); WBC 8.5 k/uL (3.8-10.6)
[2018-09-29 03:57] LABS: INR 1.2 (<1.2); Partial Thromboplastin Time 35.9 sec (22.0-30.0); Prothrombin Time 11.7 sec (9.0-12.0)
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
--- NOTE | 2018-09-29 04:06 | CT ---
EXAMINATION TYPE: CT brain ankit wo con DATE OF EXAM: 09/29/2018 COMPARISON: 12/11/[address] scan HISTORY: overdose CT DLP: 1074 mGycm Automated exposure control for dose reduction was used. TECHNIQUE: CT scan of the head and cervical spine are performed without contrast. FINDINGS: Ventricles of normal size. There is no mass effect nor midline shift. There is no sign of intracranial hemorrhage. Sella turcica appears normal. Calvarium is intact. The cervical vertebra have normal spacing and alignment. Posterior elements are intact. Skull base is intact. Facet joints appear normal. IMPRESSION: Negative CT scan of the brain. negative CT scan cervical spine.
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
[2018-09-29 04:11] LABS: Creatine Kinase MB 1.6 ng/mL (0.0-2.4); Troponin I 0.022 ng/mL (0.000-0.034)
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
[2018-09-29 04:18] LABS: Band Neutrophils % 6 %; Lymphocytes # (M) 0.68 k/uL (1.0-4.8); Monocytes # (M) 0.09 k/uL (0-1.0); Neutrophils % (M) 85 %; Nucleated Red Blood Cells 0 /100 WBC (0-0); Total Cells Counted 100
[2018-09-29] MEDS ORDERED: SODIUM CHLORIDE 0.9% 1,000 ML IV SCH (05:00)
[2018-09-29 05:34] VITALS: PULSE 118; RESP 22
[2018-09-29 05:35] VITALS: BP 108/62; TEMP 98
== END 2018-09-29 05:55 | disposition other institution (70) ==
LOC: EC 02:16
DX: S00.83XA Contusion of other part of head, initial encounter (principal); J96.01 Acute respiratory failure with hypoxia; T40.601A Poisoning by unspecified narcotics, accidental (unintentional), initial encounter; J81.1 Chronic pulmonary edema; R41.82 Altered mental status, unspecified; F19.10 Other psychoactive substance abuse, uncomplicated; F17.200 Nicotine dependence, unspecified, uncomplicated
CPT/HCPCS: 99291; 36556; 31500; 96360; 96361 ×2; 36415; 94002; 93005; 86900; 86901; 80053; 82550; 82553; 84484; 85025; 85610; 85730; 86850; 81001; 80306; 72170; 71045; 72125; 70486; 70450; 71260; 74177; G0480; J2250 ×2; J0330; J2704; Q9967; 80320; 94660